=== PATIENT | female | born 1950 | race Caucasian/White ===

== ENCOUNTER → 2018-04-17 | Outpatient (CLI) | payer MEDICARE ==
--- NOTE | 2018-04-17 15:51 | BD ---
EXAMINATION TYPE: Axial Bone Density DATE OF EXAM: 04/17/2018 COMPARISON: 2016 CLINICAL HISTORY: post menopausal female. Osteoporosis screening. Height: 5'4 Weight: 172 FRAX RISK QUESTIONS: Glucocorticoids (More than 3mos): y (Ex: prednisone, prednisolone, methylprednisolone, dexamethasone, and hydrocortisone). History of Fracture in Adulthood: y Secondary Osteoporosis: RISK FACTORS HISTORY OF: Postmenopausal woman: y MEDICATIONS: Additional Medications: asthma, blood pressure Additional History: EXAM MEASUREMENTS: Bone mineral densitometry was performed using the IMedExchange System. Bone mineral density as measured about the Lumbar spine is: ----- L1-L4(G/cm2): 0.995 T Score Values are as follows: ----- L2: -1.5 ----- L3: -1.8 ----- L4: -1.3 ----- L1-L4: -1.5 Bone mineral density has: Decreased -1.5% since study of: 12/31/2015 Bone mineral density about the R hip (g/cm2): 0.726 Bone mineral density about the L hip (g/cm2): 0.659 T Score values are as follows: -----R Neck: -2.2 -----L Neck: -2.7 -----R Total: -0.8 -----L Total: -1.0 Bone mineral density has: Decreased -5.7% since study of: 12/31/2015 IMPRESSION: Osteoporosis (T Score less than -2.5) with regards to the left femur. There is increased fracture risk and therapy is usually indicated based on age. Re-Screen 1-2 years. NOTE: T-SCORE=SD OF THE YOUNG ADULT MEAN.
--- NOTE | 2018-04-18 13:29 | MM ---
Reason for exam: screening (asymptomatic). Last mammogram was performed 2 years and 4 months ago. History: Patient is postmenopausal. Took estrogen for 1 year beginning at age 52. Physical Findings: A clinical breast exam by your physician is recommended on an annual basis and results should be correlated with mammographic findings. MG 3D Screening Mammo W/Cad Bilateral CC and MLO view(s) were taken. Prior study comparison: December 31, 2015, bilateral MG 3d screening mammo w/cad. July 05, 2012, bilateral digital screening mammo w/CAD. The breast tissue is heterogeneously dense. This may lower the sensitivity of mammography. There is a stable right lower inner quadrant mass at posterior depth. No suspicious abnormality. No significant changes when compared with prior studies. ASSESSMENT: Benign, BI-RAD 2 RECOMMENDATION: Routine screening mammogram of both breasts in 1 year.
== END ==
LOC: RADMAMWWP 14:34
PROVIDERS: ATTEND Internal Medicine
DX: Z12.31 Encounter for screening mammogram for malignant neoplasm of breast (principal); M81.0 Age-related osteoporosis without current pathological fracture; Z78.0 Asymptomatic menopausal state
CPT/HCPCS: 77063; 77067; 77080

== ENCOUNTER → 2018-05-21 | Outpatient (CLI) | payer MEDICARE ==
--- NOTE | 2018-05-21 11:01 | XR ---
EXAMINATION TYPE: XR foot complete LT DATE OF EXAM: 05/21/2018 CLINICAL HISTORY: pain TECHNIQUE: Frontal, lateral and oblique images of the left foot are obtained. COMPARISON: None. FINDINGS: There is no acute fracture/dislocation evident. Moderate degenerative narrowing first meta tarsal phalangeal joint The overlying soft tissue appears unremarkable. Postoperative changes about t he os calcis. IMPRESSION: There is no acute fracture or dislocation. ICD 10 NO FRACTURE, INITIAL EVALUATION
== END | disposition home or self-care (01) ==
LOC: RADXRMAIN 10:33
PROVIDERS: ATTEND Podiatrist Foot Surgery
DX: M79.672 Pain in left foot (principal); M77.42 Metatarsalgia, left foot; M20.12 Hallux valgus (acquired), left foot

== ENCOUNTER → 2018-06-22 | Outpatient (CLI) | payer MEDICARE ==
--- NOTE | 2018-06-22 10:48 | XR ---
EXAMINATION TYPE: XR chest 2V DATE OF EXAM: 06/22/2018 COMPARISON: None TECHNIQUE: PA and lateral views submitted. HISTORY: Cough FINDINGS: Heart size normal. No pneumothorax or interstitial edema. Linear changes involving the lung bases. No overt failure. Hyperinflation seen. Hypertrophic and degenerative changes identified of the vertebra l column. IMPRESSION: 1. Basilar atelectasis favored over pneumonia correlate clinically. 2. COPD
== END | disposition home or self-care (01) ==
LOC: RADXRMAIN 10:33
PROVIDERS: ATTEND Allergy & Immunology
DX: J44.9 Chronic obstructive pulmonary disease, unspecified (principal); J98.11 Atelectasis
CPT/HCPCS: 71046

== ENCOUNTER → 2018-06-28 | Outpatient (CLI) | payer MEDICARE ==
[2018-06-29 10:15] LABS: Thyroid Stim Immun Quant 23.3 IU/L (<0.10)
== END | disposition home or self-care (01) ==
LOC: LABWHC1 13:59
PROVIDERS: ATTEND Internal Medicine Endocrinology, Diabetes & Metabolism
DX: E05.00 Thyrotoxicosis with diffuse goiter without thyrotoxic crisis or storm (principal)
CPT/HCPCS: 36415; 83519; 84439; 84443; 84445; 84481; 86376

== ENCOUNTER → 2018-07-18 | Outpatient (CLI) | payer MEDICARE | END | disposition home or self-care (01) | LOC: LABWHC1 12:17 | PROVIDERS: ATTEND Internal Medicine Critical Care Medicine | DX: R05 Cough (principal) | CPT/HCPCS: 36415; 82785; 85008 ==

== ENCOUNTER → 2018-07-20 | Outpatient (CLI) | payer MEDICARE ==
--- NOTE | 2018-07-24 11:00 | CT ---
EXAMINATION TYPE: CT sinus wo con DATE OF EXAM: 07/20/2018 COMPARISON: None HISTORY: Chronic sinusitis CT DLP: [address] of the paranasal sinuses was performed in the axial and coronal planes. Bone and soft tissue settings are submitted. The paranasal sinuses demonstrate normal aeration and development. The paranasal sinuses are free of mucosal thickening or air fluid level. The osteal meatal units are patent bilaterally. Nasal septal deviation from right to left. No bony destructive changes are seen within the field of view. IMPRESSION: Nasal septal deviation from right to left. Otherwise unremarkable study.
== END ==
LOC: RADCTMAIN 14:33
PROVIDERS: ATTEND Internal Medicine Critical Care Medicine
DX: J34.2 Deviated nasal septum (principal)
CPT/HCPCS: 70486

== ENCOUNTER 2018-07-31 09:51 | Day surgery (SDC) | payer MEDICARE ==
[2018-07-30 09:52] VITALS: BMI 28.1
[~2018-07-31 09:51] MED LIST: LACTATED RINGERS 1,000 ML IV SCH; LIDOCAINE 1% 20 ML VIAL (10MG/ML) FOR IV START INTRADERMA PRN
[2018-07-31 10:08] VITALS: RESP 16; TEMP 99.4
[2018-07-31] MEDS ORDERED: LIDOCAINE 2% (PF) 20 MG/ML 10 ML AMP INHALATION ONE (10:45)
[2018-07-31] MEDS ORDERED: LIDOCAINE 1% INJ 10MG/ML (20 ML MDV) ONE (11:08)
[2018-07-31] MEDS ORDERED: PROPOFOL 10 MG/ML 20 ML VIAL IV ONE (11:08)
[2018-07-31] MEDS ORDERED: LIDOCAINE 2% INJ 20 MG/ML INTRATRACH ONE (11:18)
--- NOTE | 2018-07-31 11:36 | PCN ---
PROCEDURE NOTE PROCEDURE: Bronchoscopy, airway examination, therapeutic lavage, BAL right middle lobe. OPERATORS: Dr. Hensley and Dr. Brewer. There was informed consent. There was universal timeout. ANESTHESIA: Anesthesia/COLLECTION SUPPORT SPECIALIST provided unconscious sedation and general anesthesia. PREOPERATIVE DIAGNOSIS: Chronic cough and bronchitis. POSTOPERATIVE DIAGNOSIS: Chronic cough and bronchitis. PROCEDURE: The patient's procedure took place in room #1. After the patient was adequately sedated and being fully monitored, the bronchoscope was inserted through the right nostril. It passed through the right nasopharynx into the oropharynx. The hypopharynx was identified and topicalized. The hypopharyngeal structures appeared relatively normal. Vocal cords, anterior commissure, true cords, arytenoids, piriform sinuses, false cords, vallecula, epiglottis all appeared relatively normal. After topicalization, the bronchoscope was pushed through the glottic opening into the trachea. The trachea appeared normal. Tracheal nanci was sharp. The right and left mainstem were topicalized. The right upper lobe and its 3 segments, the right middle lobe and its 2 segments, right lower lobe and its 5 segments, the left upper lobe proper and its 2 segments, the lingula and its 2 segments and the left lower lobe and its 4 segments all had similar findings of moderate bronchitis. There was some purulent secretions noted. There was no dominant mass or tumor. There was some hyperemia and erythema of the airways. There was not any bleeding. There was no mucosal friability. The patient tolerated the procedure well so far. Next, the bronchoscope was wedged into the right middle lobe. The BAL took place. The patient tolerated the procedure well. The bronchoscope was withdrawn. There was no immediate complication. MMODL / IJN: [id number] /
[2018-07-31 12:29] VITALS: BP 124/73; PULSE 79
[2018-07-31 17:06] LABS: Appearance,BF Cloudy; Color,BF Red; Mononuclear WBC,Body Fluid 34 %; Nucleated Cells, Body Fluid 70 /uL; Polynuclear WBC,Body Fluid 66 %; RBC, Body Fluid 23550 /uL
[2018-08-01] MEDS ORDERED: ATROPINE SULFATE 0.4 MG/ML 1 ML VIAL IM ONE (05:00)
[2018-08-01] MEDS ORDERED: LIDOCAINE 2% (PF) 20 MG/ML 5 ML VIAL INHALATION ONE (05:00)
[2018-08-01] MEDS ORDERED: ALBUTEROL NEB (CONC) 2.5 MG/0.5 ML INHALATION ONE (05:00)
[2018-08-01] MEDS ORDERED: LACTATED RINGERS 1,000 ML IV SCH (06:00)
[2018-08-01] MEDS ORDERED: LIDOCAINE VISCOUS 300 MG/15 ML CUP MUCOUS MEM ONE (06:00)
[2018-08-01] MEDS ORDERED: SODIUM CHLORIDE 0.9% 1,000 ML IV SCH (06:00)
== END 2018-07-31 12:29 | disposition home or self-care (01) ==
LOC: ORWHC2ENDO 09:51
PROVIDERS: ATTEND Internal Medicine Critical Care Medicine
DX: J40 Bronchitis, not specified as acute or chronic (principal); I10 Essential (primary) hypertension; E03.9 Hypothyroidism, unspecified; E05.00 Thyrotoxicosis with diffuse goiter without thyrotoxic crisis or storm; E78.5 Hyperlipidemia, unspecified; M19.90 Unspecified osteoarthritis, unspecified site; J45.909 Unspecified asthma, uncomplicated; Z82.49 Family history of ischemic heart disease and other diseases of the circulatory system; Z83.3 Family history of diabetes mellitus; Z79.82 Long term (current) use of aspirin; Z79.890 Hormone replacement therapy; Z79.51 Long term (current) use of inhaled steroids; Z79.899 Other long term (current) drug therapy; Z88.2 Allergy status to sulfonamides
CPT/HCPCS: 94640; 88108; 88305; 89050; 87252; 87070; 87205; 87116; 87102; 87206; 31624; J2001 ×3; J0461; J2704; 87496; 87498; 87502; 87529; 87634; 87798

== ENCOUNTER 2018-08-03 09:31 | Emergency (ER) | payer MEDICARE ==
[2018-08-03] MEDS ORDERED: IBUPROFEN 600 MG TAB PO STA (09:50)
--- NOTE | 2018-08-03 09:54 | ED ---
General Adult HPI - General Chief complaint: Fever Stated complaint: Fever Time Seen by Provider: 08/03/18 09:35 Source: patient, RN notes reviewed Mode of arrival: ambulatory Limitations: no limitations - History of Present Illness Initial comments: This is a 68-year-old female who presents emergency Department complaining of a fever and chronic cough with some hemoptysis. Patient states his been ongoing for about 6 months but the fever just started Monday after she had a bronchoscopy. Patient states the fever was 102 at home and at 5:00 this morning she took 2 Tylenol. Patient states her cough is no worse than it normally is and is still some blood streaked but clear sputum. Patient denies any shortness of breath. Patient denies any swelling to the legs or calf tenderness. Patient denies any chest pain or palpitations. Patient denies any headache patient denies numbness weakness. Denies any dysuria hematuria urinary frequency. - Related Data Home Medications Medication Instructions Recorded Confirmed Aspirin [Adult Low Dose Aspirin EC] 81 mg PO DAILY 07/30/18 08/03/18 Black Seed Oil 1,000 mg PO DAILY 07/30/18 08/03/18 Budesonide-Formot 160-4.5 Mcg 2 puff INHALATION RT-BID 07/30/18 08/03/18 [Symbicort 160-4.5 Mcg Inhaler] Hydrochlorothiazide [Hydrodiuril] 25 mg PO DAILY 07/30/18 08/03/18 L.acidoph,Paracasei, B.lactis 1 cap PO DAILY 07/30/18 08/03/18 [Probiotic] Methimazole [Tapazole] 10 mg PO DAILY 07/30/18 08/03/18 Metoprolol Succinate (ER) [Toprol 50 mg PO BID 07/30/18 08/03/18 Xl] Montelukast [Singulair] 10 mg PO HS 07/30/18 08/03/18 Qnasl [place] 1 spray EA NOSTRIL QAM 07/30/18 08/03/18 amLODIPine BESYLATE/BENAZEPRIL 1 cap PO DAILY 07/30/18 08/03/18 [amLODIPine BESYLATE/BENAZEPRIL 10-20 MG] Previous Rx's Medication Instructions Recorded Amoxicillin/Potassium Clav 1 each PO Q12HR #20 tab 08/03/18 [Augmentin 875-125 Tablet] Allergies Allergy/AdvReac Type Severity Reaction Status Date / Time Sulfa (Sulfonamide Allergy Swelling Verified 08/03/18 09:58 Antibiotics) oface and lips, red skin Review of Systems ROS Statement: Those systems with pertinent positive or pertinent negative responses have been documented in the HPI. ROS Other: All systems not noted in ROS Statement are negative. Past Medical History Past Medical History: Asthma, Hypertension, Pneumonia, Thyroid Disorder Additional Past Medical History / Comment(s): sinus drainage, past high cholesterol-no rx, graves disease, History of Any Multi-Drug Resistant Organisms: None Reported Past Surgical History: Appendectomy, Orthopedic Surgery, Tonsillectomy Additional Past Surgical History / Comment(s): surgery rt tibia fx, reconstrution left heel, D&C Past Anesthesia/Blood Transfusion Reactions: Motion Sickness Past Psychological History: No Psychological Hx Reported Smoking Status: Never smoker Past Alcohol Use History: None Reported Past Drug Use History: None Reported - Past Family History Brother(s) Family Medical History: Deep Vein Thrombosis (DVT) General Exam - General Exam Comments Initial Comments: GENERAL: Patient is well-developed and well-nourished. Patient is nontoxic and well- hydrated and is in mild distress. ENT: Neck is soft and supple. No significant lymphadenopathy is noted. Oropharynx is clear. Moist mucous membranes. Neck has full range of motion without eliciting any pain. EYES: The sclera were anicteric and conjunctiva were pink and moist. Extraocular movements were intact and pupils were equal round and reactive to light. Eyelids were unremarkable. PULMONARY: Unlabored respirations. Good breath sounds bilaterally. No audible rales rhonchi or wheezing was noted. CARDIOVASCULAR: There is a regular rate and rhythm without any murmurs gallops or rubs. ABDOMEN: Soft and nontender with normal bowel sounds. SKIN: Skin is clear with no lesions or rashes and otherwise unremarkable. NEUROLOGIC: Patient is alert and oriented x3. Cranial nerves II through XII are grossly intact. Motor and sensory are also intact. Normal speech, volume and content. Symmetrical smile. MUSCULOSKELETAL: Normal extremities with adequate strength and full range of motion. Patient has no leg swelling or calf tenderness LYMPHATICS: No significant lymphadenopathy is noted PSYCHIATRIC: Normal psychiatric evaluation. Limitations: no limitations Course Vital Signs 08/03/18 08/03/18 08/03/18 09:36 10:04 10:06 Temperature 99 F 100.5 F H Pulse Rate 101 H Respiratory 20 16 Rate Blood Pressure 146/82 O2 Sat by Pulse 96 Oximetry 08/03/18 08/03/18 10:11 10:30 Temperature Pulse Rate 88 85 Respiratory 22 26 H Rate Blood Pressure 136/75 136/75 O2 Sat by Pulse 96 93 L Oximetry Medical Decision Making - Medical Decision Making EKG shows normal sinus rhythm at 89 bpm MS interval is 138 QRSs 80 QT interval 362 QTC is 440. Patient's EKG shows no acute abnormality. Chest x-ray showed no obvious abnormality. CT showed no pulmonary embolism but did show some areas of pneumonitis. I spoke with Dr. Zuñiga about the patient and the results. He wanted the patient to be discharged home on Augmentin to be followed up with him next week. Patient states she has an appointment with him. - Lab Data Result diagrams: 08/03/18 10:52 08/03/18 10:01 Lab Results 08/03/18 08/03/18 08/03/18 Range/Units 10:01 10:01 10:01 WBC (3.8-10.6) k/uL RBC (3.80-5.40) m/uL Hgb (11.4-16.0) gm/dL Hct (34.0-46.0) % MCV (80.0-100.0) fL MCH (25.0-35.0) pg MCHC (31.0-37.0) g/dL RDW (11.5-15.5) % Plt Count (150-450) k/uL Neutrophils % % Lymphocytes % % Monocytes % % Eosinophils % % Basophils % % Neutrophils # (1.3-7.7) k/uL Lymphocytes # (1.0-4.8) k/uL Monocytes # (0-1.0) k/uL Eosinophils # (0-0.7) k/uL Basophils # (0-0.2) k/uL PT 9.8 (9.0-12.0) sec INR 0.9 (<1.2) APTT 20.0 L (22.0-30.0) sec D-Dimer 0.78 H (<0.60) mg/L FEU Sodium 137 (137-145) mmol/L Potassium 4.0 (3.5-5.1) mmol/L Chloride 104 (98-107) mmol/L Carbon Dioxide 23 (22-30) mmol/L Anion Gap 10 mmol/L BUN 10 (7-17) mg/dL Creatinine 0.62 (0.52-1.04) mg/dL Est GFR (CKD-EPI)AfAm >90 (>60 ml/min/1.73 sqM) Est GFR (CKD-EPI)NonAf >90 (>60 ml/min/1.73 sqM) Glucose 112 H (74-99) mg/dL Plasma Lactic Acid Tulio (0.7-2.0) mmol/L Calcium 10.3 H (8.4-10.2) mg/dL Total Bilirubin 0.6 (0.2-1.3) mg/dL AST 24 (14-36) U/L ALT 30 (9-52) U/L Alkaline Phosphatase 76 (38-126) U/L Total Protein 8.0 (6.3-8.2) g/dL Albumin 4.3 (3.5-5.0) g/dL Urine Color Urine Appearance (Clear) Urine pH (5.0-8.0) Ur Specific [place] (1.001-1.035) Urine Protein (Negative) Urine Glucose (UA) (Negative) Urine Ketones (Negative) Urine Blood (Negative) Urine Nitrite (Negative) Urine Bilirubin (Negative) Urine Urobilinogen (<2.0) mg/dL Ur Leukocyte Esterase (Negative) Influenza Type A RNA Not Detected (Not Detectd) Influenza Type B (PCR) Not Detected (Not Detectd) 08/03/18 08/03/18 08/03/18 Range/Units 10:01 10:01 10:52 WBC 3.7 L (3.8-10.6) k/uL RBC 4.55 (3.80-5.40) m/uL Hgb 13.0 (11.4-16.0) gm/dL Hct 36.6 (34.0-46.0) % MCV 80.3 (80.0-100.0) fL MCH 28.6 (25.0-35.0) pg MCHC 35.6 (31.0-37.0) g/dL RDW 14.2 (11.5-15.5) % Plt Count 245 (150-450) k/uL Neutrophils % 77 % Lymphocytes % 13 % Monocytes % 4 % Eosinophils % 3 % Basophils % 0 % Neutrophils # 2.9 (1.3-7.7) k/uL Lymphocytes # 0.5 L (1.0-4.8) k/uL Monocytes # 0.2 (0-1.0) k/uL Eosinophils # 0.1 (0-0.7) k/uL Basophils # 0.0 (0-0.2) k/uL PT (9.0-12.0) sec INR (<1.2) APTT (22.0-30.0) sec D-Dimer (<0.60) mg/L FEU Sodium (137-145) mmol/L Potassium (3.5-5.1) mmol/L Chloride (98-107) mmol/L Carbon Dioxide (22-30) mmol/L Anion Gap mmol/L BUN (7-17) mg/dL Creatinine (0.52-1.04) mg/dL Est GFR (CKD-EPI)AfAm (>60 ml/min/1.73 sqM) Est GFR (CKD-EPI)NonAf (>60 ml/min/1.73 sqM) Glucose (74-99) mg/dL Plasma Lactic Acid Tulio 1.1 (0.7-2.0) mmol/L Calcium (8.4-10.2) mg/dL Total Bilirubin (0.2-1.3) mg/dL AST (14-36) U/L ALT (9-52) U/L Alkaline Phosphatase (38-126) U/L Total Protein (6.3-8.2) g/dL Albumin (3.5-5.0) g/dL Urine Color Light Yellow Urine Appearance Clear (Clear) Urine pH 7.0 (5.0-8.0) Ur Specific [place] 1.006 (1.001-1.035) Urine Protein Negative (Negative) Urine Glucose (UA) Negative (Negative) Urine Ketones Negative (Negative) Urine Blood Negative (Negative) Urine Nitrite Negative (Negative) Urine Bilirubin Negative (Negative) Urine Urobilinogen <2.0 (<2.0) mg/dL Ur Leukocyte Esterase Negative (Negative) Influenza Type A RNA (Not Detectd) Influenza Type B (PCR) (Not Detectd) Disposition Clinical Impression: Status post bronchoscopy, Pneumonitis Disposition: HOME SELF-CARE Condition: Good Instructions (If sedation given, give patient instructions): Pneumonitis (ED), Fever in Adults (ED) Prescriptions: Amoxicillin/Potassium Clav [Augmentin 875-125 Tablet] 1 each PO Q12HR #20 tab Is patient prescribed a controlled substance at d/c from ED?: No Referrals: Doroteo Fuller MD [Primary Care Provider] - 1-2 days
[2018-08-03 10:30] LABS: ALT 30 U/L (9-52); AST 24 U/L (14-36); Albumin 4.3 g/dL (3.5-5.0); Alkaline Phosphatase 76 U/L (38-126); Anion Gap 10 mmol/L; Blood Urea Nitrogen 10 mg/dL (7-17); Calcium 10.3 mg/dL (8.4-10.2); Carbon Dioxide 23 mmol/L (22-30); Chloride 104 mmol/L (98-107); Glucose 112 mg/dL (74-99); Sodium 137 mmol/L (137-145); Total Bilirubin 0.6 mg/dL (0.2-1.3)
[2018-08-03 10:37] LABS: Appearance,Urine Clear (Clear); Bilirubin,Urine Negative (Negative); Blood,Urine Negative (Negative); Color,Urine Light Yellow; Glucose,Urine (UA) Negative (Negative); Ketones,Urine Negative (Negative); Leukocyte Esterase,Urine Negative (Negative); Nitrite,Urine Negative (Negative); Protein,Urine Negative (Negative); Specific Gravity,Urine 1.006 (1.001-1.035); Urobilinogen,Urine <2.0 mg/dL (<2.0)
[2018-08-03 10:44] LABS: INR 0.9 (<1.2); Prothrombin Time 9.8 sec (9.0-12.0)
[2018-08-03 10:49] LABS: D-Dimer 0.78 mg/L FEU (<0.60)
--- NOTE | 2018-08-03 10:55 | XR ---
EXAMINATION TYPE: XR chest 2V DATE OF EXAM: 08/03/2018 COMPARISON: Prior chest x-ray 06/22/2018 HISTORY: Fever, hemoptysis TECHNIQUE: Frontal and lateral views of the chest are obtained. FINDINGS: There is no significant interval change. Minimal strand-like density at the left lung base likely represents atelectasis or scarring. There are prominent lung volumes which may be indicative o f underlying COPD. There are overlying cardiac leads. There is no focal air space opacity, pleural ef fusion, or pneumothorax seen. The cardiac silhouette size is within normal limits. The osseous str uctures are intact. IMPRESSION: No acute cardiopulmonary process.
[2018-08-03 11:03] LABS: Basophils % (A) 0 %; Eosinophils # (A) 0.1 k/uL (0-0.7); Eosinophils % (A) 3 %; HCT 36.6 % (34.0-46.0); Lymphocytes # (A) 0.5 k/uL (1.0-4.8); Lymphocytes % (A) 13 %; MCH 28.6 pg (25.0-35.0); MCHC 35.6 g/dL (31.0-37.0); MCV 80.3 fL (80.0-100.0); Mean Platelet Volume 8.2; Monocytes # (A) 0.2 k/uL (0-1.0); Monocytes % (A) 4 %; Neutrophils # (A) 2.9 k/uL (1.3-7.7); Neutrophils % (A) 77 %; Platelet Count 245 k/uL (150-450); RBC 4.55 m/uL (3.80-5.40); RDW 14.2 % (11.5-15.5); WBC 3.7 k/uL (3.8-10.6)
--- NOTE | 2018-08-03 12:12 | CT ---
CT CHEST FOR PULMONARY EMBOLISM. EXAMINATION TYPE: CT chest angio for PE DATE OF EXAM: 08/03/2018 INDICATION: Post Bronchoscopy on 07/31/18. Hemoptysis and fever CT DLP: 291.8 mGycm, Automated exposure control for dose reduction was used. CONTRAST: Patient injected with 100 mL of Isovue 370. COMPARISON: None TECHNIQUE: CT of the chest is performed on a spiral scan at 2 mm thick sections. Study is performed with intravenous contrast timed for evaluation for pulmonary embolism. This will limit additional po rtions of the evaluation. 3-D MIP images reconstructed by the technologist are reviewed on the compu ter in the coronal and sagittal planes. FINDINGS: Thyroid is slightly prominent. No discrete masses are evident within the [id number]. No persistent filling defects are evident to suggest an acute pulmonary embolism. No mediastinal or hilar adenopathy enlarged by CT criteria is evident. The ascending aorta diameter at the level of the main pulmonary artery is 3.3 cm. The main pulmonary artery diameter at the bifur cation is 3.1 cm. There is a 0.9 cm area of pneumonitis within the posterior right upper lung field. Series 406 image 2 9. Some additional pneumonitis changes adjacent to the major fissure on the left, series 406 image 60 as well as on the right, image 406 image 63. There is a groundglass opacity within the right middle lobe. Series 406 image 96. Some mild atelectasis may be just above the right diaphragm. Some mild pleural thickening may be in the posterior right lung. Series 406 image 84.r There is a 0.6 cm nodule within the right middle lobe. Series [address] sections are obtained through the upper abdomen. There are several small hypodensities wit hin the liver may be hepatic cysts. IMPRESSIONS: 1. No acute pulmonary embolism. 2. Several areas of pneumonitis change which are nonspecific. Infectious etiology could be considered . This should be followed. 3. There is a nodule within the right middle lobe. Follow-up chest CT in 3 months is recommended to c onfirm stability.
[2018-08-03] MEDS ORDERED: AMOXIC-POT CLAV 875-125MG 1 EACH TAB PO STA (12:54)
[2018-08-03 13:08] VITALS: BP 133/67; PULSE 76; RESP 16; TEMP 98.6
== END 2018-08-03 13:09 | disposition home or self-care (01) ==
LOC: EC 09:31
DX: J18.9 Pneumonia, unspecified organism (principal); J45.909 Unspecified asthma, uncomplicated; I10 Essential (primary) hypertension; Z79.51 Long term (current) use of inhaled steroids; Z79.82 Long term (current) use of aspirin; Z79.899 Other long term (current) drug therapy; Z88.2 Allergy status to sulfonamides
CPT/HCPCS: 36415; 93005; 85379; 80053; 83605; 85025; 85610; 85730; 81003; 87040; 87086; 87502; 71046; 71275; 99284; Q9967

== ENCOUNTER 2018-08-04 17:58 | Inpatient (IN) | payer MEDICARE ==
[2018-08-04] MEDS ORDERED: SODIUM CHLORIDE 0.9% 1,000 ML IV STA (18:31)
[2018-08-04] MEDS ORDERED: ACETAMINOPHEN TAB 500 MG TAB PO STA (18:31)
[2018-08-04] MEDS ORDERED: ONDANSETRON 4 MG/2 ML VIAL IVP STA (18:33)
--- NOTE | 2018-08-04 18:53 | ED ---
Fever HPI <Byron Chen - Last Filed: 08/04/18 20:30> - General Source: patient Mode of arrival: ambulatory Limitations: no limitations <Felicita Ash - Last Filed: 08/04/18 22:36> - General Chief Complaint: Fever Stated Complaint: Fever Time Seen by Provider: 08/04/18 18:14 - History of Present Illness Initial Comments: 68-year-old female patient presents to the emergency department today for ev aluation of fever. Patient states that she had a bronchoscopy performed on 07/31/2018 for a six-month history of chronic cough. Patient states shortly after the procedure she developed fever and vomiting. Patient states symptoms have persisted over the last 3-4 days. States that she was seen and evaluated here yesterday, diagnosed with post bronchoscopy pneumonitis and started on Augmentin. Patient states she did take 2 doses of the medication today and did have vomiting episodes approximately 3 hours after each dose. States that she has continued to spike fevers and had T-max at home today 104.0F. Patient states that she is experiencing generalized weakness and achiness. Patient de nies any current shortness of breath or chest pain. Denies any rash, constipation, diarrhea, or abdominal pain. Patient did take 600 mg of ibuprofen around 2 PM for fever. Patient denies any recent shortness breath, back pain, numbness, tingling, dizziness, weakness, hematuria, dysuria, urinary urgency, urinary frequency, headache, visual changes, or any other complaints. (Felicita Ash) - Related Data Home Medications Medication Instructions Recorded Confirmed Aspirin [Adult Low Dose Aspirin EC] 81 mg PO DAILY 07/30/18 08/04/18 Black Seed Oil 1,000 mg PO DAILY 07/30/18 08/04/18 Budesonide-Formot 160-4.5 Mcg 2 puff INHALATION RT-BID 07/30/18 08/04/18 [Symbicort 160-4.5 Mcg Inhaler] Hydrochlorothiazide [Hydrodiuril] 25 mg PO DAILY 07/30/18 08/04/18 L.acidoph,Paracasei, B.lactis 1 cap PO DAILY 07/30/18 08/04/18 [Probiotic] Methimazole [Tapazole] 10 mg PO DAILY 07/30/18 08/04/18 Metoprolol Succinate (ER) [Toprol 50 mg PO BID 07/30/18 08/04/18 Xl] Montelukast [Singulair] 10 mg PO HS 07/30/18 08/04/18 Qnasl [place] 1 spray EA NOSTRIL QAM 07/30/18 08/04/18 amLODIPine BESYLATE/BENAZEPRIL 1 cap PO DAILY 07/30/18 08/04/18 [amLODIPine BESYLATE/BENAZEPRIL 10-20 MG] Amoxicillin/Potassium Clav 1 tab PO Q12HR 08/04/18 08/04/18 [Augmentin 875-125 Tablet] Allergies Allergy/AdvReac Type Severity Reaction Status Date / Time Sulfa (Sulfonamide Allergy Swelling Verified 08/04/18 20:58 Antibiotics) oface and lips, red skin Review of Systems ROS Other: All systems not noted in ROS Statement are negative. <Byron Chen - Last Filed: 08/04/18 20:30> ROS Other: All systems not noted in ROS Statement are negative. <Felicita Ash - Last Filed: 08/04/18 22:36> ROS Statement: Those systems with pertinent positive or pertinent negative responses have been documented in the HPI. Past Medical History Past Medical History: Asthma, Hypertension, Pneumonia, Thyroid Disorder Additional Past Medical History / Comment(s): sinus drainage, past high cho lesterol-no rx, graves disease, History of Any Multi-Drug Resistant Organisms: None Reported Past Surgical History: Appendectomy, Orthopedic Surgery, Tonsillectomy Additional Past Surgical History / Comment(s): surgery rt tibia fx, reconstrution left heel, D&C Past Anesthesia/Blood Transfusion Reactions: Motion Sickness Past Psychological History: No Psychological Hx Reported Smoking Status: Never smoker Past Alcohol Use History: None Reported Past Drug Use History: None Reported - Past Family History Brother(s) Family Medical History: Deep Vein Thrombosis (DVT) <Felicita Ash - Last Filed: 08/04/18 22:36> General Exam Limitations: no limitations General appearance: alert, in no apparent distress, other (Physical well- developed, well-nourished adult female patient in no acute distress. Vital signs upon presentation are temperature 102.9F, pulse 107, respirations 18, blood pressure 129/76, pulse ox 98% on room air.) Eye exam: Present: normal appearance, PERRL, EOMI. Absent: scleral icterus, conjunctival injection, periorbital swelling ENT exam: Present: normal exam, normal oropharynx, mucous membranes moist Respiratory exam: Present: normal lung sounds bilaterally. Absent: respiratory distress, wheezes, rales, rhonchi, stridor Cardiovascular Exam: Present: regular rate, normal rhythm, normal heart sounds. Absent: systolic murmur, diastolic murmur, rubs, gallop, clicks GI/Abdominal exam: Present: soft, normal bowel sounds. Absent: distended, tenderness, guarding, rebound, rigid Neurological exam: Present: alert, oriented X3, CN II-XII intact Psychiatric exam: Present: normal affect, normal mood Skin exam: Present: warm, dry, intact, normal color. Absent: rash <Felicita Ash - Last Filed: 08/04/18 22:36> Course Vital Signs 08/04/18 08/04/18 18:02 21:09 Temperature 102.9 F H Pulse Rate 107 H 78 Respiratory 18 20 Rate Blood Pressure 129/76 95/81 O2 Sat by Pulse 98 97 Oximetry Medical Decision Making - Lab Data Result diagrams: 08/04/18 19:10 08/04/18 19:10 <Byron Chen - Last Filed: 08/04/18 20:30> - Lab Data Result diagrams: 08/04/18 19:10 08/04/18 19:10 <Felicita Ash - Last Filed: 08/04/18 22:36> - Medical Decision Making Medical decision making. This is a 68-year-old female who returns to the emergency room today with a fever of 102. Labs show white count of 4. Patient is declining a repeat chest x-ray. She was started on IV antibiotics. The case discussed with Dr. Zafar on-call for Dr. Fuller. He'll see the patient in the emergency room. Dr. Chen (Byron Chen) 60-year-old female patient who is status post bronchoscopy and 07/31/2018 presents to the emergency department today for evaluation of elevated temperature. T-max at home was 104.0F. Patient was evaluated yesterday and discharged home started on Augmentin. Patient had multiple episodes of vomiting today and presents complaining of feeling worse. She denies any significant cough or hemoptysis. Did order labs which were relatively unremarkable, white blood cell count was within normal range over increased from yesterday's level. Physical examination is relatively unremarkable. Did order chest x-ray were patient declined stating that she's had multiple x-rays in the last few days including a CAT scan. Did discuss risks of not performing x-ray, she verbalizes understanding for continued to decline. We will start IV antibiotics. We will admit to Dr. Rowe and have Dr. Hensley on consult. (Felicita Ash) - Lab Data Lab Results 08/04/18 08/04/18 08/04/18 Range/Units 19:10 19:10 19:10 WBC 4.4 (3.8-10.6) k/uL RBC 4.60 (3.80-5.40) m/uL Hgb 13.6 (11.4-16.0) gm/dL Hct 37.0 (34.0-46.0) % MCV 80.4 (80.0-100.0) fL MCH 29.5 (25.0-35.0) pg MCHC 36.7 (31.0-37.0) g/dL RDW 13.8 (11.5-15.5) % Plt Count 215 (150-450) k/uL Neutrophils % 87 % Lymphocytes % 6 % Monocytes % 4 % Eosinophils % 1 % Basophils % 0 % Neutrophils # 3.8 (1.3-7.7) k/uL Lymphocytes # 0.3 L (1.0-4.8) k/uL Monocytes # 0.2 (0-1.0) k/uL Eosinophils # 0.1 (0-0.7) k/uL Basophils # 0.0 (0-0.2) k/uL Hyperchromasia Slight Sodium 137 (137-145) mmol/L Potassium 3.5 (3.5-5.1) mmol/L Chloride 102 (98-107) mmol/L Carbon Dioxide 23 (22-30) mmol/L Anion Gap 12 mmol/L BUN 18 H (7-17) mg/dL Creatinine 0.79 (0.52-1.04) mg/dL Est GFR (CKD-EPI)AfAm 90 (>60 ml/min/1.73 sqM) Est GFR (CKD-EPI)NonAf 78 (>60 ml/min/1.73 sqM) Glucose 113 H (74-99) mg/dL Plasma Lactic Acid Tulio 1.2 (0.7-2.0) mmol/L Calcium 10.1 (8.4-10.2) mg/dL Total Bilirubin 0.6 (0.2-1.3) mg/dL AST 30 (14-36) U/L ALT 32 (9-52) U/L Alkaline Phosphatase 82 (38-126) U/L Total Protein 7.2 (6.3-8.2) g/dL Albumin 3.8 (3.5-5.0) g/dL Disposition <Byron Chen - Last Filed: 08/04/18 20:30> Decision to Admit Reason: Admit from EC Decision Date: 08/04/18 Decision Time: 20:51 <Felicita Ash - Last Filed: 08/04/18 22:36> Clinical Impression: Pneumonitis, Fever Disposition: ADMITTED IP TO THIS [facility] Condition: Serious Referrals: Doroteo Fuller MD [Primary Care Provider] - 1-2 days
[2018-08-04 19:53] LABS: Basophils % (A) 0 %; Eosinophils # (A) 0.1 k/uL (0-0.7); Eosinophils % (A) 1 %; HGB 13.6 gm/dL (11.4-16.0); Hyperchromasia Slight; Lymphocytes # (A) 0.3 k/uL (1.0-4.8); Lymphocytes % (A) 6 %; MCH 29.5 pg (25.0-35.0); MCHC 36.7 g/dL (31.0-37.0); MCV 80.4 fL (80.0-100.0); Mean Platelet Volume 6.6; Monocytes # (A) 0.2 k/uL (0-1.0); Monocytes % (A) 4 %; Neutrophils # (A) 3.8 k/uL (1.3-7.7); Neutrophils % (A) 87 %; Platelet Count 215 k/uL (150-450); RDW 13.8 % (11.5-15.5); WBC 4.4 k/uL (3.8-10.6)
[2018-08-04 19:56] LABS: Albumin 3.8 g/dL (3.5-5.0); Calcium 10.1 mg/dL (8.4-10.2); Potassium 3.5 mmol/L (3.5-5.1); Total Bilirubin 0.6 mg/dL (0.2-1.3); Total Protein 7.2 g/dL (6.3-8.2)
[2018-08-04] MEDS ORDERED: NALOXONE 0.4 MG/ML 1 ML VIAL IV PRN (20:47)
[2018-08-04] MEDS ORDERED: AZITHROMYCIN 500 MG in SODIUM CHLORIDE 0.9% 250 ML IVPB STA (20:50)
[2018-08-04] MEDS ORDERED: AZITHROMYCIN 500 MG in SODIUM CHLORIDE 0.9% 250 ML IVPB ONE (22:30)
[2018-08-04] MEDS: SODIUM CHLORIDE 0.9% 1,000 ML IV SCH (22:35)
[2018-08-05] MEDS ORDERED: MONTELUKAST 10 MG TAB PO STA (01:15)
[2018-08-05] MEDS ORDERED: SYMBICORT 160-4.5 MCG INHALER INHALATION STA ×2 (01:43→01:51)
[2018-08-05 02:36] LABS: Appearance,Urine Clear (Clear); Bilirubin,Urine Negative (Negative); Blood,Urine Negative (Negative); Color,Urine Yellow; Glucose,Urine (UA) Negative (Negative); Ketones,Urine Negative (Negative); Leukocyte Esterase,Urine Negative (Negative); Nitrite,Urine Negative (Negative); Protein,Urine Trace (Negative); Specific Gravity,Urine 1.016 (1.001-1.035); Urobilinogen,Urine <2.0 mg/dL (<2.0)
[2018-08-05] MEDS ORDERED: ONDANSETRON 4 MG/2 ML VIAL IVP STA (04:04)
[2018-08-05] MEDS: ACETAMINOPHEN TAB 325 MG TAB PO PRN ×3 (04:12→23:15)
[2018-08-05] MEDS: SYMBICORT 160-4.5 MCG INHALER INHALATION SCH ×2 (07:50→19:39)
[2018-08-05] MEDS ORDERED: METHIMAZOLE 5 MG TAB PO SCH (09:00)
[2018-08-05] MEDS ORDERED: AZITHROMYCIN 500 MG in SODIUM CHLORIDE 0.9% 250 ML IVPB SCH (09:00)
[2018-08-05] MEDS ORDERED: amLODIPine 10 MG TAB PO SCH (09:00)
[2018-08-05] MEDS ORDERED: QNASL EA NOSTRIL SCH (09:00)
[2018-08-05] MEDS ORDERED: BLACK SEED OIL PO SCH (09:00)
[2018-08-05] MEDS: ASPIRIN 81 MG PO SCH (09:52)
[2018-08-05] MEDS: METOPROLOL SUCCINATE (ER) 50 MG TAB.ER.24H PO SCH ×2 (09:53→21:26)
[2018-08-05] MEDS: LISINOPRIL 20 MG TAB PO SCH ×3 (09:53→10:43)
[2018-08-05] MEDS: IBUPROFEN 400 MG TAB PO PRN ×2 (09:59→19:44)
[2018-08-05] MEDS: LIPASE 5,000/PROTEASE 17,000/AMYLASE 24,000 PO SCH (10:43)
[2018-08-05] MEDS: amLODIPine 10 MG TAB PO SCH (10:43)
[2018-08-05 10:59] LABS: HCT 36.4 % (34.0-46.0); HGB 12.9 gm/dL (11.4-16.0); Hyperchromasia Slight; MCH 28.7 pg (25.0-35.0); MCHC 35.4 g/dL (31.0-37.0); MCV 81.2 fL (80.0-100.0); Mean Platelet Volume 8.5; Platelet Count 206 k/uL (150-450); RBC 4.48 m/uL (3.80-5.40); RDW 13.9 % (11.5-15.5); WBC 2.8 k/uL (3.8-10.6)
--- NOTE | 2018-08-05 13:20 | HP ---
HISTORY AND PHYSICAL ATTENDING PHYSICIAN: Dr. Mark Fuller. CHIEF COMPLAINT: Fever. HISTORY OF PRESENT ILLNESS: This 68-year-old female was admitted to the hospital after presenting in the emergency room on return visit because of continued episodes of fever. The patient had a temperature of 104 at home and in view of this, she presents to the hospital. The patient had been seen in the emergency room on with a fever and workup had been negative and thus, the patient had been discharged back home. The patient last week Monday, had a bronchoscopy because of continued coughing. The patient cultures from that were negative. The patient's CT scan done on suggests a possible small episodes of pneumonitis. The patient was seen by Pulmonary, Dr. Cain who did not feel there was any significant changes. The patient's chest x-ray was unremarkable. White count was actually on the low side. Patient is on Tapazole. The patient was recently started on Tapazole for Graves thyroid. That has been about 3 weeks. The patient denies any other symptoms of headaches, any worsening cough. In fact, the cough is much better. Denies any diarrhea, dysuria. No skin lesions. She does have some mild vomiting, couple of episodes at least with minimal vomitus. Appetite is down. Patient does get chills. She gets a fever. There is no other clear focus of fever. Denies any sore throat. PAST MEDICAL HISTORY: Recent diagnosis of hypothyroidism. The patient has a goiter as well, and was felt to have Grave's thyrotoxicosis. She has mild exophthalmos. Past history significant for long-standing history of hypertension and bronchial asthma, mild persistent. The patient on medical therapy for the same with help. Has had a previous also history of degenerative arthritis. Past trauma history includes right tibial and left tibial fractures. She has had hardware in both the right tibia and left tibia. No increased pain at those sites. This was many years ago. PAST SURGICAL HISTORY: Includes tonsils, tonsillectomy, appendectomy. She has had colonoscopies with no significant abnormality, last one back in January 2014. PERSONAL HISTORY: Nonsmoker. Alcohol a couple drinks a week, which she has not been drinking any lately. Vaccinations does get annual flu shot. ALLERGIES: TO SULFA. MEDICATIONS: Include Lotrel 10-20 1 daily, singular 10 mg daily, metoprolol 50 mg b.i.d., Tapazole 10 mg daily. She takes probiotic daily, HydroDIURIL 25 mg daily, Symbicort 2 puffs b.i.d., takes some 1000 mg daily, aspirin 81 mg daily, and had been placed on Augmentin in the emergency room 2 days ago. SOCIAL HISTORY: Patient , lives with her spouse. She is a retired speech therapist. Does exercise regularly until recent. FAMILY MEDICAL HISTORY: Father at the age of 55, acute myocardial infarction. Mother age 92. She had history of diabetes mellitus, ASHD. Five brothers, 1 brother had history of abdominal aortic aneurysm and diabetes mellitus. Other brothers have history of hypertension. There is a strong history of age-related macular degeneration. Sister 71 history of hepatitis in remission. The patient's son, 41 history of psoriasis, daughter 37 in good health. REVIEW OF SYSTEMS: Neuro: Denies any headaches, dizziness. No double vision, blurred vision. No symptoms of TIA, syncope, seizures. Psych: Some anxiety. Cardiac: Denies chest pain, angina, palpitations. RESPIRATORY: Denies shortness of breath, improved cough. No hemoptysis. GI mild nausea, vomiting. No abdominal pain. No diarrhea. No constipation, hematochezia, melena. No : No symptoms of dysuria, hematuria, urgency frequency. Extremities: Denies pain or edema. CONSTITUTIONAL: No fever or chills. Did lose weight. She was losing a pound a day while she was hypothyroid. This is improved since has been on Tapazole. PHYSICAL EXAMINATION: Pleasant female in no distress. Vital signs revealed she had a temperature of 103 degrees Fahrenheit last night. This morning 100.9, pulse 85, respiration 18, blood pressure 125/76, pulse ox 98% on room air. HEENT: Normocephalic. NECK: Supple. No JVD. Oral cavity is mild inflammation. No exudates. Nostrils are clear. NECK: Supple. Mild thyromegaly. Nontender. Chest examination: Clear to auscultation and percussion. Cardiac: Normal S1, S2 with no gallops, murmurs appreciated. ABDOMEN: Soft. No palpable masses. Bowel sounds normal. No organomegaly. No abdominal bruits. No CVA tenderness. EXTREMITIES: No edema. No tenderness at the site of previous surgeries. Neurologically: Awake, alert, oriented x3 with well-coordinated movements. Eye examination reveals mild lid lag. LABORATORY DATA: Laboratory assessment yesterday reveals white count was 4.4, lymphocytes down to 0.3, neutrophils 3.8. Electrolytes were normal. Random glucose 113. Lactic acid normal. Hepatic function normal. Urine analysis is unremarkable. ASSESSMENT: 1. Fever, source undetermined. 2. Recent bronchoscopy. 3. History of bronchial asthma, moderate intermittent. 4. Graves disease, recent diagnosis. 5. Neutropenia, probably related to Tapazole. 6. Leukopenia probably related to Tapazole. PLAN: Continue present medical regimen. We will hold Tapazole. I will discuss this with Dr. Yadi Crawford who is our marketing financial analyst on outpatient. Patient has been seen by Pulmonary, Dr. Hensley and again, no clear source of infection is noted. I will check sedimentation rate and CRP. Prognosis remains guarded. Condition discussed with the patient and spouse. MMODL / ANNETTEN: [id number] /
--- NOTE | 2018-08-05 13:33 | CONS ---
CONSULTATION PULMONARY CRITICAL CARE CONSULTATION: DATE OF CONSULTATION: 08/05/2018 This is a patient who was sent to me by Dr. Stroud. I evaluated her in the office. She has a history of chronic bronchial asthma which has been much more active recently. Her complaints include increasing cough, wheezing, chest tightness, shortness of breath, and secretion production. Anyway, the patient had a bronchoscopy performed by me on July 31. We did a BAL of the right middle lobe. Thus far all cultures are negative. It was an uneventful bronchoscopy. No biopsies were done. We did it primarily to remove any secretions that were in the airway, but also to collect some secretions for sampling. The BAL went to the laboratory and is currently negative or pending. Subsequent to that, she developed a febrile episode. It seemed to develop about 4-6 hours after the procedure. She apparently presented to the emergency room afterwards and was seen by Dr. Quezada and she was prescribed some Augmentin. Dr. Quezada actually called me. She was very stable and her testing was essentially unremarkable. Subsequent to that visit, she came back into the emergency room on August 04. The patient was seen by Dr. Byron Chen at that time. The patient apparently refused a chest x-ray, but did have a CAT scan and the CAT scan showed some very minimal patchy areas of pneumonitis. The patient did have a high temperature of about 103-104 degrees. For that reason, she was admitted to the hospital for IV fluids, antibiotics, and temperature control. I did see her in the emergency room. She seemed relatively comfortable say for the fever. She denies any shortness of breath, coughing, wheezing, or phlegm production. No chest pain or chest discomfort. The patient was also seen by Dr. Fuller who was covering for Dr. Stroud. Again, her radiographic studies were minimal at best. She denies all other complaints. CURRENT MEDICATIONS: Include aspirin, flaxseed oil, Symbicort, hydrochlorothiazide, probiotic, Tapazole for recently discovered Graves disease, metoprolol, montelukast, QNASL spray, amlodipine, and Augmentin which was given to her on her first hospital visit by Dr. Quezada. ALLERGIES: SULFA. MEDICAL HISTORY: Includes chronic bronchial asthma which has been more active recently, hypertension, previous episode of pneumonia and hyperthyroidism. She also has chronic sinus disease. In the past she has had high cholesterol. SURGICAL HISTORY: Includes appendectomy, tonsillectomy, right tibial surgery reconstruction of left heel, D and C. SOCIAL HISTORY: Negative for tobacco, alcohol or illicit drug use. FAMILY HISTORY: Positive for DVT. OCCUPATIONAL HISTORY: Noncontributory. REVIEW OF SYSTEMS: CONSTITUTIONAL: Fever. NEUROLOGIC: Negative. HEENT: Negative. CARDIOVASCULAR: Negative. PULMONARY: Negative. GI: Negative. : Negative. RHEUMATOLOGIC: Negative. IMMUNOLOGIC: Negative. ENDOCRINOLOGIC: Negative. PHYSICAL EXAMINATION: Current vital signs: Temperature 100.9, heart rate 85, respiratory rate 18, blood pressure 125/76, mean 92, room air saturation 98%. Her T-max was 103 degrees. She appears in no acute distress. Again, she is not really having any major issues other than the fever. HEENT examination is grossly unremarkable. Mucous membranes are moist. NECK: Supple. Full range of motion. No adenopathy, thyromegaly or neck vein distention. CARDIOVASCULAR EXAMINATION: Reveals regular rhythm rate. Heart rate about mid 80s. S1, S2 normal. LUNGS: Mostly clear. No wheezes, rhonchi, or crackles. Breath sounds equal bilaterally. No wheezes. ABDOMEN: Soft. Bowel sounds are heard. Extremities are intact. No cyanosis, clubbing, or edema. Skin without rash. Neurologic examination is brief but nonfocal. White count 2.8, hemoglobin 12.9, hematocrit 36.4, platelet count 306,000. Sodium, potassium, chloride and CO2 all normal. Anion gap normal. BUN and creatinine were normal. Urine was negative. Liver function tests were normal. She had a chest x-ray when she was in the ER on the . It showed it to be normal. She had a CT scan also on the and it showed no evidence of pulmonary embolism. It showed some patchy areas of minimal pneumonitis. These areas included the posterior right upper lung and also on the left side as well. There was also some minimal abnormality in the right middle lobe. All of her microbiology is thus far negative. There was some Nola in her fungal cultures. Virus studies were all negative. Bacteriologic studies were negative. Her medications are reviewed. She was given Tylenol, Zithromax, Symbicort, and Rocephin. She was also started on some Singulair. ASSESSMENT: 1. Febrile illness following a bronchoscopy, of unclear etiology. So far sampling from the bronch wash is negative. She is not having any other symptoms including shortness of breath, chest tightness, wheezing, cough or phlegm production. 2. History of chronic bronchial asthma, much more active recently. 3. History of chronic sinus disease and sinus drainage. 4. History of hypertension. 5. History of pneumonia. 6. Recently diagnosed hyperthyroidism/Graves disease. PLAN: The patient will be admitted to the hospital for some fluids, antipyretics and antibiotics. We will continue to follow. Prognosis is good. The patient looks well clinically. She is not having any other complaints other than fever. Additional recommendations and suggestions are forthcoming. She was being seen by Dr. Fuller when we were seeing her in the emergency room. MMODL / IJN: [id number] /
[2018-08-05 14:55] LABS: Band Neutrophils % 2 %; Eosinophils # (M) 0.03 k/uL (0-0.7); Lymphocytes # (M) 0.64 k/uL (1.0-4.8); Monocytes # (M) 0.48 k/uL (0-1.0); Neutrophils % (M) 57 %; Nucleated Red Blood Cells 0 /100 WBC (0-0); Total Cells Counted 100
[2018-08-05] MEDS: ONDANSETRON 4 MG/2 ML VIAL IVP PRN ×2 (17:28→23:15)
[2018-08-05] MEDS: SODIUM CHLORIDE 0.9% 1,000 ML IV SCH (18:15)
[2018-08-05] MEDS: MONTELUKAST 10 MG TAB PO SCH (21:26)
[2018-08-06] MEDS: IBUPROFEN 400 MG TAB PO PRN (03:10)
[2018-08-06] MEDS: SODIUM CHLORIDE 0.9% 1,000 ML IV SCH (03:10)
[2018-08-06] MEDS: ASPIRIN 81 MG PO SCH (07:21)
[2018-08-06] MEDS: METOPROLOL SUCCINATE (ER) 50 MG TAB.ER.24H PO SCH ×2 (07:21→22:17)
[2018-08-06] MEDS: LIPASE 5,000/PROTEASE 17,000/AMYLASE 24,000 PO SCH (07:22)
[2018-08-06] MEDS: amLODIPine 10 MG TAB PO SCH (07:23)
[2018-08-06] MEDS: LISINOPRIL 20 MG TAB PO SCH (07:23)
[2018-08-06 08:12] LABS: T4, Free (Free Thyroxine) 1.08 ng/dL (0.78-2.19)
[2018-08-06] MEDS: SYMBICORT 160-4.5 MCG INHALER INHALATION SCH ×2 (08:56→19:33)
[2018-08-06] MEDS: ACETAMINOPHEN TAB 325 MG TAB PO PRN ×2 (13:17→22:17)
--- NOTE | 2018-08-06 15:35 | P.PN ---
Subjective Progress Note Date: 08/06/18 Principal diagnosis: Febrile illness of unclear etiology This is a 68-year-old white female patient who follows with Dr. Hensley and had a recent history of bronchoscopy for persistent cough. Bronchial wash cultures have all been negative, patient had a bronchoscopy on 07/31/2018. No biopsies were done, patient had the secretions removed from the airways, she was doing well. However patient had been seen in the emergency department following her bronchoscopy for episodes of fever, was treated with Augmentin. The first time in the emergency. Patient refused a chest x-ray, however she did have a CAT scan of the chest which showed very minimal patchy areas of pneumonitis. Her fever was as high as 10 4F. But the patient did not have any pulmonary symptoms, no shortness of breath, no coughing or wheezing. No chest pain, she was recently diagnosed with Graves' disease, and was started on Tapazole. Tapazole has been discontinued in view of recent febrile illness. Chest x-ray was completed in the emergency department on 08/03/2018 he was within normal limits, CT angios did not show any evidence of pulmonary embolism, some patchy areas of minimal pneumonitis. All cultures remain negative, viral studies are negative. Initial lab work showed white blood cell, 4.4, hemoglobin 13.6, electrolytes are within normal limits, BUN is 18 creatinine 0.79. Analysis was negative for any evidence of infection. Today's blood work has been reviewed Objective - Vital Signs Vital signs: Vital Signs Temp 98.6 F 08/06/18 07:00 Pulse 70 08/06/18 07:40 Resp 16 08/06/18 07:40 BP 96/57 08/06/18 07:00 Pulse Ox 94 L 08/06/18 07:00 Intake & Output 08/05/18 08/06/18 08/06/18 18:59 06:59 18:59 Intake Total 700 Balance 700 Intake: Intake, IV Titration 700 Amount Sodium Chloride 0.9% 1, 600 000 ml @ 50 mls/hr IV . Q20H JACKELYN Rx#:[id number] cefTRIAXone 1 gm In 100 Sodium Chloride 0.9% 50 ml @ 100 mls/hr IVPB Q24H JACKELYN Rx#:[id number] Other: Voiding Method Toilet Toilet Toilet # Voids 2 - Exam GENERAL EXAM: Alert, pleasant, 68-year-old white female comfortable in no apparent distress. HEAD: Normocephalic/atraumatic. EYES: Normal reaction of pupils, equal size. Conjunctiva pink, sclera white. NOSE: Clear with pink turbinates. THROAT: No erythema or exudates. NECK: No masses, no JVD, no thyroid enlargement, no adenopathy. CHEST: No chest wall deformity. Symmetrical expansion. LUNGS: Equal air entry with no crackles, wheeze, rhonchi or dullness. CVS: Regular rate and rhythm, normal S1 and S2, no gallops, no murmurs, no rubs ABDOMEN: Soft, nontender. No hepatosplenomegaly, normal bowel sounds, no guarding or rigidity. EXTREMITIES: No clubbing, no edema, no cyanosis, 2+ pulses and upper and lower extremities. MUSCULOSKELETAL: Muscle strength and tone normal. SPINE: No scoliosis or deformity SKIN: No rashes CENTRAL NERVOUS SYSTEM: Alert and oriented -3. No focal deficits, tone is normal in all 4 extremities. PSYCHIATRIC: Alert and oriented -3. Appropriate affect. Intact judgment and insight. - Labs CBC & Chem 7: 08/05/18 08:59 08/04/18 19:10 Labs: Abnormal Lab Results - Last 24 Hours (Table) 08/04/18 08/06/18 08/06/18 Range/Units 19:10 06:48 06:48 ESR 26 H (0-20) mm/hr Procalcitonin 0.99 H (0.02-0.09) ng/mL TSH <0.015 L (0.465-4.680) mIU/L Microbiology - Last 24 Hours (Table) 08/04/18 19:10 Blood Culture - Preliminary Blood No Growth after 24 hours Assessment and Plan Plan: Assessment: #1. Febrile illness following a bronchoscopy of unclear etiology, all bronchial wash cultures and viral cultures have been negative thus far, no specific pulmonary complaints, no shortness of breath, no chest tightness wheezing coughing or phlegm production. Chest x-ray was within normal limits, CT chest revealed minimal patchy areas of minimal pneumonitis, no evidence of pulmonary embolism #2. History of chronic bronchial asthma #3. History of chronic sinus disease with sinus drainage #4. History of hypertension #5. Previous history of pneumonia #6. Recent diagnosis of hyperthyroidism/Graves' disease Plan: Clinically patient remains stable, lung sounds are clear, no pulmonary complaints, no coughing or wheezing or phlegm production, last episode of fever was last night at 7:00 with a T-max of 101.7F, patient remains on room air, with a pulse ox of 94%, she is afebrile today, respirations are even and nonlabored, [place] lung level was elevated suggesting presence of infection or inflammatory process, this could be related to them the reality of the thyroid function. Clinically no signs of infection noted. Chest x-ray and CAT scan were all reviewed by Dr. Cain, only positive for patchy areas of pneumonitis, no evidence of pneumonia. Empiric antibiotics were started per attending physician, continue with nebulized bronchodilators, Symbicort, will follow on as-needed basis. I performed a history & physical examination of the patient and discussed their management with my nurse practitioner, Carole Cuadra. I reviewed the nurse practitioner's note and agree with the documented findings and plan of care. Lung sounds are positive for clear lung sounds. The findings and the impression was discussed with the patient. I attest to the documentation by the nurse practitioner. Time with Patient: Less than 30
--- NOTE | 2018-08-06 21:49 | PN ---
PROGRESS NOTE ATTENDING PHYSICIAN: Dr. Mark Fuller. CHIEF COMPLAINT: Re-evaluation. HISTORY OF PRESENT ILLNESS: This is a 68-year-old who was admitted to the hospital with fever. The patient started having a fever following bronchoscopy last week Monday. The patient has been seen by Dr. Hensley and I felt that the patient's chest x-ray was not remarkable and was unclear the patient's fever. The patient, however, is feeling better today. She has been on Tapazole and her white count is down and in view of this, Tapazole has been discontinued. TSH is still suppressed. T4 is in the normal range. The patient feels much better this morning. REVIEW OF SYSTEMS: Neuro: Denies any headaches, dizziness. Psych: No anxiety. Cardiac: No chest pain, angina, palpitations. Respiratory: Denies shortness of breath, cough, hemoptysis. GI: No nausea, vomiting, abdominal pain, diarrhea. no symptoms of dysuria, hematuria, urgency or frequency. Extremities denies pain or edema. CONSTITUTIONAL: Did have a fever and no chills though. PHYSICAL EXAMINATION: Vital signs reveals temperature is up 101.5 and 101.7 at 7:00 pm last night. Subsequent to that, the patient had defervesced fevers. This morning she is afebrile. Temperature 98.6, pulse 70, respirations 16, blood pressure 196/57, pulse ox 94% on room air. HEENT: Normocephalic. Neck no JVD. CHEST: Clear to auscultation and percussion. Cardiac: Normal S1, S2 with no gallops, murmurs. ABDOMEN: Soft. No palpable masses. Bowel sounds normal. No organomegaly. No abdominal bruits. Extremities reveal no edema. No tenderness. NEUROLOGIC: Awake, alert, oriented with well-coordinated movements. LABORATORY ASSESSMENT: Sedimentation rate was 26. White count 2.8, and 97% neutrophils. ASSESSMENT: 1. Fever, source unknown, on empiric treatment with Rocephin. 2. Hyperthyroidism. 3. Leukopenia. 4. History of essential hypertension. PLAN: The patient is stable, continue present medical regimen. Patient's condition is discussed with the patient. Prognosis is guarded. Continue IV hydration and antibiotic for now. Await blood cultures results. MMODL / IJN: [id number] /
[2018-08-06] MEDS: MONTELUKAST 10 MG TAB PO SCH (22:17)
[2018-08-06] MEDS: HEPARIN SODIUM,PORCINE 5,000 UNIT/ML 1 ML VIAL SQ SCH (23:52)
[2018-08-07] MEDS: METOPROLOL SUCCINATE (ER) 50 MG TAB.ER.24H PO SCH ×2 (07:09→22:03)
[2018-08-07] MEDS: ASPIRIN 81 MG PO SCH (07:09)
[2018-08-07] MEDS: ACETAMINOPHEN TAB 325 MG TAB PO PRN (07:09)
[2018-08-07] MEDS: LIPASE 5,000/PROTEASE 17,000/AMYLASE 24,000 PO SCH (07:10)
[2018-08-07] MEDS: SODIUM CHLORIDE 0.9% 1,000 ML IV SCH ×2 (07:10→22:04)
[2018-08-07] MEDS: HEPARIN SODIUM,PORCINE 5,000 UNIT/ML 1 ML VIAL SQ SCH ×2 (07:10→15:46)
[2018-08-07] MEDS: SYMBICORT 160-4.5 MCG INHALER INHALATION SCH ×2 (07:50→22:11)
[2018-08-07 08:58] LABS: ALT 39 U/L (9-52); AST 36 U/L (14-36); Albumin 3.1 g/dL (3.5-5.0); Alkaline Phosphatase 86 U/L (38-126); Anion Gap 9 mmol/L; Blood Urea Nitrogen 13 mg/dL (7-17); Calcium 9.1 mg/dL (8.4-10.2); Carbon Dioxide 23 mmol/L (22-30); Chloride 106 mmol/L (98-107); Glucose 134 mg/dL (74-99); Potassium 3.2 mmol/L (3.5-5.1); Sodium 138 mmol/L (137-145); Total Bilirubin 0.5 mg/dL (0.2-1.3); Total Protein 6.2 g/dL (6.3-8.2)
--- NOTE | 2018-08-07 09:17 | XR ---
EXAMINATION TYPE: XR chest 2V DATE OF EXAM: 08/07/2018 COMPARISON: 08/03/2018 TECHNIQUE: PA and lateral views submitted. HISTORY: Fever FINDINGS: The lungs are clear and there is no pneumothorax, pleural effusion, or focal pneumonia. Hyperinflat ion of the lungs with subsegmental consolidation and small bilateral effusions. Heart size stable. Un derlying COPD noted and there is hypertrophic and degenerative change of the spine. IMPRESSION: 1. Correlate for COPD. Basilar atelectasis or infiltrate with tiny effusion or pleural thickening sta ble. Right middle lobe nodule reported by CT scan not well-seen by standard x-ray.
[2018-08-07 10:36] LABS: Basophils % (A) 1 %; Eosinophils % (A) 1 %; HCT 33.5 % (34.0-46.0); HGB 11.5 gm/dL (11.4-16.0); Lymphocytes # (A) 1.3 k/uL (1.0-4.8); Lymphocytes % (A) 36 %; MCH 28.5 pg (25.0-35.0); MCHC 34.3 g/dL (31.0-37.0); Mean Platelet Volume 7.4; Monocytes # (A) 0.2 k/uL (0-1.0); Monocytes % (A) 5 %; Neutrophils # (A) 1.9 k/uL (1.3-7.7); Neutrophils % (A) 53 %; Platelet Count 194 k/uL (150-450); Poikilocytosis Slight; RBC 4.04 m/uL (3.80-5.40); WBC 3.6 k/uL (3.8-10.6)
--- NOTE | 2018-08-07 12:48 | P.PN ---
Subjective Progress Note Date: 08/07/18 Principal diagnosis: Fever of unknown origin. This is a 68-year-old white female patient who follows with Dr. Hensley and had a recent history of bronchoscopy for persistent cough. Bronchial wash cultures have all been negative, patient had a bronchoscopy on 07/31/2018. No biopsies were done, patient had the secretions removed from the airways, she was doing well. However patient had been seen in the emergency department following her bronchoscopy for episodes of fever, was treated with Augmentin. The first time in the emergency. Patient refused a chest x-ray, however she did have a CAT scan of the chest which showed very minimal patchy areas of pneumonitis. Her fever was as high as 10 4F. But the patient did not have any pulmonary symptoms, no shortness of breath, no coughing or wheezing. No chest pain, she was recently diagnosed with Graves' disease, and was started on Tapazole. Tapazole has been discontinued in view of recent febrile illness. Chest x-ray was completed in the emergency department on 08/03/2018 he was within normal limits, CT angios did not show any evidence of pulmonary embolism, some patchy areas of minimal pneumonitis. All cultures remain negative, viral studies are negative. Initial lab work showed white blood cell, 4.4, hemoglobin 13.6, electrolytes are within normal limits, BUN is 18 creatinine 0.79. Analysis was negative for any evidence of infection. Today's blood work has been reviewed. The patient is seen today 08/07/2018 in follow-up on the regular medical floor. She is awake and alert in no acute distress. Continues with recurrent fever at 100.1. She is 93% on room air. Hemodynamically stable. She's been up ambulating in the hallway. She is feeling somewhat fatigued but no other pulmonate complaints. Today's chest x-ray reveals evidence of COPD. There is basilar atelectasis/infiltrate with tiny effusion. Blood cultures reveal no growth to date. White count 3.6. Hemoglobin 11.5. Creatinine 0.52. She remains on ceftriaxone. Objective - Vital Signs Vital signs: Vital Signs Temp 100.1 F H 08/07/18 07:00 Pulse 81 08/07/18 07:10 Resp 16 08/07/18 07:10 BP 97/39 08/07/18 07:00 Pulse Ox 93 L 08/07/18 07:00 Intake & Output 08/06/18 08/07/18 08/07/18 18:59 06:59 18:59 Intake Total 1025 Balance 1025 Intake: Intake, IV Titration 1025 Amount Sodium Chloride 0.9% 1, 975 000 ml @ 75 mls/hr IV . [id number] JACKELYN Rx#:[id number] cefTRIAXone 1 gm In 50 Sodium Chloride 0.9% 50 ml @ 100 mls/hr IVPB Q24H JACKELYN Rx#:[id number] Other: Voiding Method Toilet Toilet Toilet # Voids 2 2 - Exam GENERAL EXAM: Alert, active, 68-year-old female patient, comfortable in no apparent distress. On room air. HEAD: Normocephalic. EYES: Normal reaction of pupils, equal size. NOSE: Clear with pink turbinates. THROAT: No erythema or exudates. NECK: No masses, no JVD. CHEST: No chest wall deformity. LUNGS: Equal air entry with faint crackles in the posterior bases. CVS: S1 and S2 normal with no audible murmur, regular rhythm. ABDOMEN: No hepatosplenomegaly, normal bowel sounds, no guarding or rigidity. SPINE: No scoliosis or deformity SKIN: No rashes CENTRAL NERVOUS SYSTEM: No focal deficits, tone is normal in all 4 extremities. EXTREMITIES: There is no peripheral edema. No clubbing, no cyanosis. Peripheral pulses are intact. - Labs CBC & Chem 7: 08/07/18 08:14 08/07/18 08:14 Labs: Abnormal Lab Results - Last 24 Hours (Table) 08/07/18 08/07/18 Range/Units 08:14 08:14 WBC 3.6 L (3.8-10.6) k/uL Hct 33.5 L (34.0-46.0) % Potassium 3.2 L (3.5-5.1) mmol/L Glucose 134 H (74-99) mg/dL Total Protein 6.2 L (6.3-8.2) g/dL Albumin 3.1 L (3.5-5.0) g/dL Microbiology - Last 24 Hours (Table) 08/04/18 19:10 Blood Culture - Preliminary Blood No Growth after 48 hours Assessment and Plan Assessment: Assessment: #1. Febrile illness following a bronchoscopy of unclear etiology, all bronchial wash cultures and viral cultures have been negative thus far, no specific pulmonary complaints, no shortness of breath, no chest tightness wheezing coughing or phlegm production. Chest x-ray was within normal limits, CT chest revealed minimal patchy areas of minimal pneumonitis, no evidence of pulmonary embolism #2. History of chronic bronchial asthma #3. History of chronic sinus disease with sinus drainage #4. History of hypertension #5. Previous history of pneumonia #6. Recent diagnosis of hyperthyroidism/Graves' disease Plan: The patient was seen and evaluated by Dr. Cain. Chest x-ray was reviewed. She remains on ceftriaxone for now. Current temperature 100.1. She remains s table from the pulmonary standpoint. We'll follow the patient on as-needed basis. I, the cosigning physician, performed a history & physical examination of the patient. Lungs sounds with faint crackles in the bilateral posterior bases Maintaining good O2 saturations in the 90s on room air. I discussed the assessment and plan of care with my nurse practitioner, Rafia Brewer. I attest to the above note as dictated by her.
[2018-08-07] MEDS ORDERED: Potassium Replacement Protocol 1 EACH MISC MISCELLANE PRN (15:31)
[2018-08-07] MEDS: POTASSIUM CHLORIDE ER 20 MEQ TAB.ER PO SCH ×2 (15:46→16:59)
[2018-08-07] MEDS ORDERED: AZITHROMYCIN 500 MG TAB PO SCH (16:00)
--- NOTE | 2018-08-08 00:07 | PN ---
PROGRESS NOTE CHIEF COMPLAINT: Re-evaluation. HISTORY OF PRESENT ILLNESS: This is a 68-year-old who was admitted to the hospital with fever and suspected pneumonitis. The patient had just had a bronchoscopy done the day prior. She had a fever. The patient is actually feeling better. She has minimal cough. REVIEW OF SYSTEMS: Neuro: Denies any headaches or dizziness. Psych: No anxiety. Cardiac: No chest pain, angina, palpitations. Respiratory: Denies shortness of breath, cough, hemoptysis. GI no nausea, vomiting, abdominal pain, diarrhea. no symptoms of dysuria or hematuria. Extremities: No pain, had painful IV sites. Constitutional: Chills with low-grade fever. PHYSICAL EXAMINATION: Pleasant female in no distress. Vital signs revealed temperature a 100.1, blood pressure is 97/39, pulse ox 93% on room air. HEENT: Normocephalic. Neck no JVD. CHEST: Clear to auscultation and percussion. Cardiac: Normal S1, S2 with no gallops, murmurs. ABDOMEN: Soft. No palpable masses. Bowel sounds normal. No organomegaly. No abdominal bruits. Extremities reveal no edema. NEUROLOGICAL: Awake, alert, oriented with well-coordinated movements. LABORATORY ASSESSMENT: None new. Patient now white count 3.6, platelet count 194. Potassium was 3.2, replenished. The liver functions normal. ASSESSMENT: 1. Fever, source undetermined. 2. Possible pneumonitis. 3. Essential hypertension. 4. Hypokalemia. 5. Hypothyroidism. PLAN: The patient is stable , continue present medical regimen. Patient's IV fluids have been discontinued. The patient will be started on Zithromax. Potential discharge home tomorrow if remains stable. Discussed with Dr. Cain and he does not feel there is much of significant respiratory infection going on. We will continue treatment. Discharge as mentioned above tomorrow. MMODL / IJN: [id number] /
[2018-08-08] MEDS: HEPARIN SODIUM,PORCINE 5,000 UNIT/ML 1 ML VIAL SQ SCH (02:00)
[2018-08-08 08:33] VITALS: BP 163/79; PULSE 78; RESP 17; TEMP 98.4
[2018-08-08] MEDS: SYMBICORT 160-4.5 MCG INHALER INHALATION SCH (09:56)
--- NOTE | 2018-08-09 09:37 | P.DS ---
Providers Date of admission: 08/04/18 21:02 Expected date of discharge: 08/08/18 Attending physician: Fracisco Stroud Consults: 08/04/18 20:49 Consult Physician Routine Consulting Provider: Dion Hensley Consult Reason/Comments: Pneumonitis Do you want consulting provider notified?: Yes Primary care physician: Doroteo Fuller [facility] Course: This 68-year-old female was admitted to the hospital after repeat visit to the emergency room for fever and chills. The patient had a bronchoscopy done on 08/01/2018. This was because of increasing cough. No significant pathology no rodrigo. Patient's cultures were negative except for some candidiasis probably from the use of oral inhalers. Patient's chest x-ray was unremarkable on 3 different occasions. A CAT scan had suggested small areas of pneumonitis which would be postbronchoscopic mild inflammation.. Patient was seen by pulmonary. She was empirically placed on antibiotic Rocephin switched to Zithromax on discharge. P atient did defervesce on the antibiotic cultures are negative. Eyes resume the patient had some pneumonitis. She also has recently been diagnosed to have hyperthyroidism/Graves' disease. She was on Tapazole but did get leukopenic and thus it was discontinued after discussion with the central sterile tech Dr. Crawford. It is felt that the patient's fever was not from Tapazole. She is stable at the time of discharge. Follow-up with outpatient. Final diagnoses 1. Probable pneumonitis 2. Mild persistent bronchial asthma 3. Essential hypertension 4. Graves' disease 5. Leukopenia secondary to Tapazole Patient Condition at Discharge: Serious Plan - Discharge Summary Discharge Rx Participant: Yes New Discharge Prescriptions: New Acetaminophen Tab [Tylenol] 650 mg PO Q6HR PRN tab PRN Reason: Mild Pain Or Fever > 100.5 Azithromycin [Zithromax] 500 mg PO DAILY@1600 #3 tab Continue amLODIPine BESYLATE/BENAZEPRIL [amLODIPine BESYLATE/BENAZEPRIL 10-20 MG] 1 cap PO DAILY Metoprolol Succinate (ER) [Toprol XL] 50 mg PO BID Hydrochlorothiazide [Hydrodiuril] 25 mg PO DAILY Qnasl [place] 1 spray EA NOSTRIL QAM L.acidoph,Paracasei, B.lactis [Probiotic] 1 cap PO DAILY Black Seed Oil 1,000 mg PO DAILY Discontinued Budesonide-Formot 160-4.5 Mcg [Symbicort 160-4.5 Mcg Inhaler] 2 puff INHALATION RT-BID Aspirin [Adult Low Dose Aspirin EC] 81 mg PO DAILY Methimazole [Tapazole] 10 mg PO DAILY Montelukast [Singulair] 10 mg PO HS Amoxicillin/Potassium Clav [Augmentin 875-125 Tablet] 1 tab PO Q12HR Discharge Medication List Black Seed Oil 1,000 mg PO DAILY 07/30/18 [History] Hydrochlorothiazide [Hydrodiuril] 25 mg PO DAILY 07/30/18 [History] L.acidoph,Paracasei, B.lactis [Probiotic] 1 cap PO DAILY 07/30/18 [History] Metoprolol Succinate (ER) [Toprol XL] 50 mg PO BID 07/30/18 [History] Qnasl [place] 1 spray EA NOSTRIL QAM 07/30/18 [History] amLODIPine BESYLATE/BENAZEPRIL [amLODIPine BESYLATE/BENAZEPRIL 10-20 MG] 1 cap PO DAILY 07/30/18 [History] Acetaminophen Tab [Tylenol] 650 mg PO Q6HR PRN tab 08/08/18 [Rx] Azithromycin [Zithromax] 500 mg PO DAILY@1600 #3 tab 08/08/18 [Rx] Follow up Appointment(s)/Referral(s): Doroteo Fuller MD [Primary Care Provider] - 1-2 days (Office will be in contact with patient upon discharge for a follow up appointment) Patient Instructions/Handouts: Viral Pneumonia (DC) Discharge Disposition: HOME SELF-CARE
== END 2018-08-08 11:25 | disposition home or self-care (01) | DRG 194 ==
LOC: EC 17:58 → 4SSUR 21:02
PROVIDERS: ADMIT Internal Medicine; ATTEND Internal Medicine
DX: J18.9 Pneumonia, unspecified organism (principal); J44.0 Chronic obstructive pulmonary disease with (acute) lower respiratory infection; J98.11 Atelectasis; E05.00 Thyrotoxicosis with diffuse goiter without thyrotoxic crisis or storm; E78.00 Pure hypercholesterolemia, unspecified; E87.6 Hypokalemia; I10 Essential (primary) hypertension; J45.30 Mild persistent asthma, uncomplicated; Z79.51 Long term (current) use of inhaled steroids; Z79.82 Long term (current) use of aspirin; Z82.49 Family history of ischemic heart disease and other diseases of the circulatory system; Z83.3 Family history of diabetes mellitus; Z87.01 Personal history of pneumonia (recurrent); Z83.2 Family history of diseases of the blood and blood-forming organs and certain disorders involving the immune mechanism; D70.8 Other neutropenia; T38.2X5A Adverse effect of antithyroid drugs, initial encounter; D70.2 Other drug-induced agranulocytosis; M19.90 Unspecified osteoarthritis, unspecified site; Z88.2 Allergy status to sulfonamides; Z79.899 Other long term (current) drug therapy
CPT/HCPCS: 36415; 71046; 71275; 80053; 81003; 83605; 84145; 84439; 84443; 84484; 85025; 85379; 85610; 85652; 85730; 87040; 87086; 87502; 93005; 94640; 96361; 96365; 96366; 96367; 96375; 96376; 99284; 99285

== ENCOUNTER → 2021-02-24 | Outpatient (CLI) | payer MEDICARE ==
--- NOTE | 2021-02-25 11:36 | MM ---
Reason for exam: screening (asymptomatic). Last mammogram was performed 2 years and 10 months ago. History: Patient is postmenopausal. Took estrogen for 1 year beginning at age 52. Physical Findings: A clinical breast exam by your physician is recommended on an annual basis and results should be correlated with mammographic findings. MG 3D Screening Mammo W/Cad Bilateral CC, MLO, and XCCL view(s) were taken. Prior study comparison: April 17, 2018, bilateral MG 3d screening mammo w/cad. December 31, 2015, bilateral MG 3d screening mammo w/cad. The breast tissue is heterogeneously dense. This may lower the sensitivity of mammography. There is no discrete abnormality. No significant changes when compared with prior studies. ASSESSMENT: Negative, BI-RAD 1 RECOMMENDATION: Routine screening mammogram of both breasts in 1 year.
== END | disposition home or self-care (01) ==
LOC: RADMAMWWP 09:51
PROVIDERS: ATTEND Internal Medicine
DX: Z12.31 Encounter for screening mammogram for malignant neoplasm of breast (principal); Z78.0 Asymptomatic menopausal state
CPT/HCPCS: 77063; 77067

== ENCOUNTER → 2022-04-08 | Outpatient (CLI) | payer MEDICARE ==
[~2022-04-08] MED LIST changes: -LACTATED RINGERS 1,000 ML IV SCH; -LIDOCAINE 1% 20 ML VIAL (10MG/ML) FOR IV START INTRADERMA PRN; +REGADENOSON 0.4 MG/5 ML SYRINGE IV PRN
--- NOTE | 2022-04-08 11:39 | NM ---
EXAMINATION TYPE: NM stress lexiscan cardiolite DATE OF EXAM: 04/08/2022 COMPARISON: NONE HISTORY: Chest pain TECHNIQUE: After the intravenous administration of 9.2 mCi Tc 99m Sestamibi - Cardiolite resting SPE CT images acquired 45 minutes post injection. The patient received 0.4mg Lexiscan, 24.0 mCi Tc 99m Sestamibi - Stress images obtained [address] injection FINDINGS: Review of stress and rest SPECT images demonstrates fixed defect involving the inferior wall myocardi um. Spotting reduced wall motion activity. Gated analysis shows an estimated left ventricular ejecti on fraction of 61 %. IMPRESSION: 1. Fixed defect involving the inferior wall myocardium correlate for history of previous infarction. Tiny area of stress-induced reversibility involving the inferior apical myocardium could not be entir ghislaine excluded but is felt to be most likely artifactual.
--- NOTE | 2022-04-08 12:06 | CA ---
Lexiscan Nuclear Stress Test Report Name: Rama Frias Exam Date: 04/08/2022 09:45 Exam Location: [facility] Ht (in): 64 Wt (lb): 165 BSA: 1.80 Ordering Phys: Peyman Padilla MD Referring Phys: Randy, Technologist: Byron Magana Age: 71 Gender: F : 1950 Procedure CPT: Indications: I25.10 coronary arteriosclerosis ICD-10 Codes: Patient History: Medications: Meds past 24 hrs: Pretest Chest Pain: STRESS TEST Lexiscan Protocol Exercise Duration (min:sec): 02:[address] Depressions (mm): Angina Score: Mckeon Score: Resting HR (bpm): 58 Peak HR (bpm): 73 Resting BP (mmHg): 126 / 81 Peak BP (mmHg): 132 / 76 MPHR: 149 Target HR: 127 % MPHR: 49 METS: 1.0 Total Dose: Peak Dose: Atropine: Double Product: 9636 BP Response: Stress Termination: PROTOCOL COMPLETE Stress Symptoms: NO SYMPTOMS Stress Summary: ECG ANALYSIS Resting ECG: Stress ECG: CONCLUSIONS Lexiscan Cardiolite stress test Baseline heart rate 50 beats a minute, Baseline blood pressure 126/81 mmHg Baseline 12-lead EKG normal No ECG evidence for ischemia during next confusion Normal heart rate and blood pressure response Nuclear portion will be reported separately Dr. George Song MD (Electronically Signed) Final Date: 08 April 2022 12:05
== END | disposition home or self-care (01) ==
LOC: RADNMMAIN 08:04
PROVIDERS: ATTEND Internal Medicine
DX: I25.10 Atherosclerotic heart disease of native coronary artery without angina pectoris (principal)
CPT/HCPCS: 93017; 78452; A9500; J2785

== ENCOUNTER 2022-04-13 07:48 | Day surgery (SDC) | payer MEDICARE ==
[~2022-04-13 07:48] MED LIST changes: +LACTATED RINGERS 1,000 ML IV SCH; +LIDOCAINE 1% (10MG/ML) FOR IV START INTRADERMA PRN; +MOXIFLOXACIN HCL 0.5% DROPS 3 ML BTL OP PRN; -REGADENOSON 0.4 MG/5 ML SYRINGE IV PRN; +TETRACAINE 0.5% OPHTH (PF) DROPS 4 ML BTL OP PRN; +TIMOLOL 0.5% OPHTH DROPS 5 ML BTL OP PRN
[2022-04-13] MEDS ORDERED: LACTATED RINGERS 1,000 ML IV ONE (08:30)
[2022-04-13] MEDS: CYCLOPENTOLATE 1% OPHTH SOLN 2 ML BTL OP PRN ×3 (08:33→08:45)
[2022-04-13] MEDS: PHENYLEPHRINE 2.5% OPHTH DRP 2ML OP PRN ×3 (08:36→08:48)
[2022-04-13 08:49] VITALS: RESP 16; TEMP 98.3
[2022-04-13] MEDS ORDERED: MIDAZOLAM 2 MG/2 ML VIAL ONE (09:35)
[2022-04-13] MEDS ORDERED: fentaNYL (PF) 50 MCG/ML 2 ML AMP ONE (09:35)
[2022-04-13] MEDS ORDERED: EPINEPHrine (PF) 0.3 ML in BALANCED SALT IRRIG SOLN COMB2 500 ML IRRIGATION ONE (09:42)
[2022-04-13] MEDS ORDERED: LIDOCAINE 1% (PF) 10MG/ML VIAL MISCELLANE ONE (09:43)
[2022-04-13] MEDS ORDERED: BALANCED SALT IRRIG SOLN COMB2 15 ML IRRIG.SOLN IRRIGATION ONE (09:43)
[2022-04-13] MEDS ORDERED: HYALURONATE SODIUM INTRAOCULAR 1 EACH SYRINGE (12MG/ML) INTRAOCULA ONE (09:43)
--- NOTE | 2022-04-13 10:02 | P.OP ---
Date of Procedure: 04/13/22 Preoperative Diagnosis: NS & CS & PSC Postoperative Diagnosis: same Procedure(s) Performed: PIOL< OS Implants: TFAT00 18.50 Anesthesia: MAC Surgeon: Bert Coffey Pathology: none sent Condition: stable Disposition: same day Indications for Procedure: blurry vision Operative Findings: no complications
[2022-04-13 10:32] VITALS: BP 107/57; PULSE 52
--- NOTE | 2022-04-14 11:59 | OP ---
OPERATIVE REPORT PROCEDURES PERFORMED: Phacoemulsification of cataract and intraocular lens implant of the left eye. PREOPERATIVE DIAGNOSES: 1. Nuclear sclerosis. 2. Cortical sclerosis. 3. Posterior subcapsular cataract. POSTOPERATIVE DIAGNOSES: 1. Nuclear sclerosis. 2. Cortical sclerosis. 3. Posterior subcapsular cataract. ESTIMATED BLOOD LOSS: Zero. SPECIMEN TAKEN: None. NARRATIVE: After obtaining the appropriate consent, the patient was brought to the operating room where the patient was placed under cardiac monitoring and prepped and draped in the usual sterile manner. At the 5 o'clock position, a 15-degree super sharp blade was used to create a paracentesis followed by instillation of 1% Xylocaine MPF 50:50 mix with BSS into the anterior chamber. This was followed by Amvisc viscoelastic to stabilize the anterior chamber. At the 3 o'clock position a self-sealing corneal flap incision was created using 2.8 mm andrew keratome. A cystotome was used to initiate a continuous tear capsulorrhexis which was completed with the Utrata forceps. A Binkhorst cannula was used to hydrodissect the lens nucleus followed by hydrodelineation. Phacoemulsification of the lens was performed utilizing phacochop in 9.81 seconds at 17% power. The remaining cortical material was removed using the irrigation aspiration mode followed by additional 1% Xylocaine MPF into the anterior chamber followed by viscoelastic to stabilize the capsular bag. An Devin TFAT00 18.5 diopters posterior chamber lens was placed into the capsular bag without difficulty. The remaining viscoelastic material was removed from the anterior chamber with the irrigation/aspiration. Balanced salt solution was used to normalize the intraocular pressure. The incision was checked for watertight integrity. The patient then received 2 drops of 0.5% timolol followed by 2 drops Vigamox, was lightly patched and shielded in the usual manner. There were no complications from the procedure. The patient tolerated the procedure well and was returned to recovery in good condition. MMODL / IJN: [id number] /
== END 2022-04-13 10:55 | disposition home or self-care (01) ==
LOC: OR 07:48
PROVIDERS: ATTEND Ophthalmology
DX: H25.12 Age-related nuclear cataract, left eye (principal); H25.092 Other age-related incipient cataract, left eye; H25.012 Cortical age-related cataract, left eye; I10 Essential (primary) hypertension; J45.909 Unspecified asthma, uncomplicated; E07.9 Disorder of thyroid, unspecified; Z79.890 Hormone replacement therapy; Z88.2 Allergy status to sulfonamides; Z79.1 Long term (current) use of non-steroidal anti-inflammatories (NSAID); Z79.51 Long term (current) use of inhaled steroids; Z79.899 Other long term (current) drug therapy
CPT/HCPCS: 66982; V2632; J2250; J0171; J3010; J2001

== ENCOUNTER → 2022-11-07 | Outpatient (CLI) | payer MEDICARE ==
--- NOTE | 2022-11-07 16:56 | CA ---
Transthoracic Echo Report Name: Rama Frias Age: 72 Gender: F : 1950 Exam Date: 11/07/2022 15:15 Exam Location: [facility] Ht (in): 64 Wt (lb): 170 Ordering Physician: Peyman Padilla MD Attending/Referring Phys: Peyman Padilla MD Flag Signalman Daniela Loera RDCS Procedure CPT: Indications: I25.10 ATHSCL HEART DISEASE OF [place] CORONARY ART Cardiac Hx: Technical Quality: Fair Contrast 1: Total Dose (mL): Contrast 2: Total Dose (mL): MEASUREMENTS (Male / Female) Normal Values 2D ECHO LV Diastolic Diameter PLAX 3.9 cm 4.2 - 5.9 / 3.9 - 5.3 cm LV Systolic Diameter PLAX 2.0 cm IVS Diastolic Thickness 1.2 cm 0.6 - 1.0 / 0.6 - 0.9 cm LVPW Diastolic Thickness 1.1 cm 0.6 - 1.0 / 0.6 - 0.9 cm LV Relative Wall Thickness 0.6 RV Internal Dim ED PLAX 4.0 cm LA Volume 65.8 cm??? 18 - 58 / 22 - 52 cm??? M-MODE Aortic Root Diameter MM 3.6 cm LA Systolic Diameter MM 4.2 cm LA Ao Ratio MM 1.2 AV Cusp Separation MM 2.3 cm DOPPLER AV Peak Velocity 133.6 cm/s AV Peak Gradient 7.1 mmHg AV Mean Velocity 93.3 cm/s AV Mean Gradient 3.8 mmHg AV Velocity Time Integral 26.3 cm AI Peak Velocity 378.9 cm/s AI Peak Gradient 57.4 mmHg AI Pressure Half Time 448.3 ms LVOT Peak Velocity 117.5 cm/s LVOT Peak Gradient 5.5 mmHg LVOT Velocity Time Integral 23.4 cm MV Area PHT 2.5 cm??? Mitral E Point Velocity 62.9 cm/s Mitral A Point Velocity 79.0 cm/s Mitral E to A Ratio 0.8 MV Deceleration Time 306.2 ms MV E' Velocity 4.1 cm/s Mitral E to MV E' Ratio 15.4 TR Peak Velocity 270.4 cm/s TR Peak Gradient 29.2 mmHg Right Ventricular Systolic Press 33.0 mmHg FINDINGS Left Ventricle Mildly increased left ventricular wall thickness. Left ventricular cavity size normal. Normal left ventricular systolic function with no obvious regional wall motion abnormalities. Left ventricular ejection fraction is estimated at 55-60 %. Right Ventricle Mild right ventricular dilatation. Right ventricular systolic pressure within normal limits. Right Atrium Normal right atrial size. Left Atrium Moderately increased left atrial volume. Mitral Valve Mild mitral regurgitation. Mitral valve thickened. Aortic Valve Trileaflet aortic valve. Trace to mild aortic regurgitation. Tricuspid Valve Structurally normal tricuspid valve. Mild tricuspid regurgitation. Pulmonic Valve Trace pulmonic regurgitation. Pericardium No pericardial effusion. Aorta Normal size aortic root and proximal ascending aorta. CONCLUSIONS Normal LV systolic function Left atrial enlargement Mild mitral regurgitation Previewed by: Dr. Valentín Hoff MD (Electronically Signed) Final Date: 07 November 2022 16:55
== END | disposition home or self-care (01) ==
LOC: RADECHMAIN 14:45
PROVIDERS: ATTEND Internal Medicine
DX: I34.0 Nonrheumatic mitral (valve) insufficiency (principal); I25.10 Atherosclerotic heart disease of native coronary artery without angina pectoris
CPT/HCPCS: 93306

== ENCOUNTER 2023-02-23 12:00 | Emergency (ER) | payer MEDICARE, OTHER ==
[2023-02-23 12:12] VITALS: TEMP 98.8
[2023-02-23 12:33] LABS: Basophils % (A) 1 %; Eosinophils # (A) 0.3 k/uL (0-0.7); Eosinophils % (A) 5 %; HCT 43.1 % (34.0-46.0); Lymphocytes # (A) 1.3 k/uL (1.0-4.8); Lymphocytes % (A) 27 %; MCH 32.1 pg (25.0-35.0); MCHC 34.9 g/dL (31.0-37.0); Mean Platelet Volume 6.6; Monocytes # (A) 0.3 k/uL (0-1.0); Monocytes % (A) 7 %; Neutrophils # (A) 2.7 k/uL (1.3-7.7); Neutrophils % (A) 58 %; Platelet Count 236 k/uL (150-450); RBC 4.69 m/uL (3.80-5.40); RDW 12.5 % (11.5-15.5); WBC 4.8 k/uL (3.8-10.6)
[2023-02-23 13:08] LABS: ALT 27 U/L (4-34); AST 28 U/L (14-36); African American GFR (CKD) >90 (>60 ml/min/1.73 sqM); Albumin 4.9 g/dL (3.5-5.0); Alkaline Phosphatase 67 U/L (38-126); Anion Gap 14 mmol/L; Blood Urea Nitrogen 16 mg/dL (7-17); Calcium 11.7 mg/dL (8.4-10.2); Carbon Dioxide 25 mmol/L (22-30); Chloride 100 mmol/L (98-107); Glucose 101 mg/dL (74-99); Non-African American GFR(CKD) 90 (>60 ml/min/1.73 sqM); Potassium 3.8 mmol/L (3.5-5.1); Sodium 139 mmol/L (137-145); Total Bilirubin 0.6 mg/dL (0.2-1.3)
[2023-02-23] MEDS ORDERED: MECLIZINE 12.5 MG TAB PO STA (13:08)
[2023-02-23 13:30] LABS: INR 0.9 (<1.2)
--- NOTE | 2023-02-23 14:14 | CT ---
EXAMINATION TYPE: CT brain wo con CT DLP: 1203.4 mGycm, Automated exposure control for dose reduction was used. DATE OF EXAM: 02/23/2023 2:07 PM COMPARISON: None. CLINICAL INDICATION:Female, 72 years old with history of hypertensive, dizzy, vomiting, headache, Diz zy, nausea, hypertension TECHNIQUE: Brain: Axial CT images of the brain were obtained with coronal and sagittal reformats created and rev iewed. Contrast used: None. Oral contrast used: None. FINDINGS: Brain: Extra-axial spaces: No abnormal extra-axial fluid collections. Ventricular system: Dilatation in proportion to cerebral atrophy. Cerebral parenchyma: Cerebral atrophy. No acute intraparenchymal hemorrhage or mass effect. The riddle -white junction is well differentiated. Scattered hypoattenuating areas are seen within the white mat ter. Cerebellum: Unremarkable. Mass effect: No evidence of midline shift. Intracranial vasculature: unremarkable Soft tissues: Normal. Calvarium/osseous structures: No depressed skull fracture. Sclerotic focus within the C2 vertebrae li isabell representing bone island measuring 5 mm. Paranasal sinuses and mastoid air cells: Mild scattered paranasal sinus disease. Visualized orbits: Bilateral aphakia IMPRESSION: 1. No acute intracranial process. 2. Nonspecific white matter changes, likely secondary to chronic small vessel ischemic disease.
--- NOTE | 2023-02-23 14:34 | ED ---
Dizziness HPI - General Chief Complaint: Dizziness Stated Complaint: light headed Time Seen by Provider: 02/23/23 12:05 Source: patient Mode of arrival: ambulatory Limitations: no limitations - History of Present Illness Initial Comments: 72-year-old female presents emergency department reporting dizziness. States that she was sitting in bed exercising and doing some sit ups when she had sudden onset of room spinning sensation. States that it was present for approximately 5 minutes. She felt nauseated and had an episode of vomiting. Symptoms were worse with positional changes. Eventually the symptoms resolved on their own. She states that this time she still feels slightly foggy. She denies any headaches or visual changes. Does admit to chronic floaters for which she is under the care of an minister helper. She denies any numbness, ti ngling or weakness in her extremities. No ataxia. No history of stroke. No history of vertigo. Does have chronic cerumen impaction. Denies chest pain or shortness of breath. No other alleviating, precipitating or modifying factors - Related Data Home Medications Medication Instructions Recorded Confirmed Black Seed Oil 1,000 mg PO DAILY 07/30/18 02/23/23 L.acidoph,Paracasei, B.lactis 1 cap PO DAILY 07/30/18 02/23/23 [Probiotic] Metoprolol Succinate (ER) [Toprol 50 mg PO BID 07/30/18 02/23/23 XL] amLODIPine BESYLATE/BENAZEPRIL 1 cap PO DAILY 07/30/18 02/23/23 [amLODIPine BESYLATE/BENAZEPRIL 10-20 MG] hydroCHLOROthiazide [Hydrodiuril] 25 mg PO DAILY 07/30/18 02/23/23 Budesonide/Formoterol Fumarate 2 puff INHALATION RT-BID 05/21/21 02/23/23 [Symbicort 160-4.5 Mcg Inhaler] Levothyroxine Sodium [Synthroid] 75 mcg PO DAILY 05/21/21 02/23/23 Albuterol Inhaler [Ventolin Hfa 2 puff INHALATION RT-Q6H PRN 02/23/23 02/23/23 Inhaler] Aspirin EC [Ecotrin Low Dose] 81 mg PO Q48H 02/23/23 02/23/23 Calcium Carbonate [Calcium] 600 mg PO DAILY 10/26/23 10/26/23 Cetirizine HCl [Zyrtec] 20 mg PO DAILY 02/23/23 02/23/23 Cholecalciferol [Vitamin D3 (125 125 mcg PO DAILY 02/23/23 02/23/23 Mcg = 5000 Iu)] Multivit-Min/FA/Lycopen/Lutein 1 tab PO DAILY 02/23/23 02/23/23 [Centrum Silver Tablet] Allergies Allergy/AdvReac Type Severity Reaction Status Date / Time Sulfa (Sulfonamide Allergy Swelling Verified 02/23/23 13:55 Antibiotics) of face and lips, red skin Review of Systems ROS Statement: Those systems with pertinent positive or pertinent negative responses have been documented in the HPI. ROS Other: All systems not noted in ROS Statement are negative. 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 Past Anesthesia/Blood Transfusion Reactions: Previous Problems w/ Anesthesia, Motion Sickness Additional Past Anesthesia/Blood Transfusion Reaction / Comment(s): had bronch 2019 & next day developed fever & N/V, had ER visits related to & then was admitted, on A/B, thought to be pneumonitis, has never had problems w/surgery or anesthesia before, was not felt that was related to anesthesia Past Psychological History: No Psychological Hx Reported Smoking Status: Never smoker Past Alcohol Use History: Occasional - Past Family History Brother(s) Family Medical History: Deep Vein Thrombosis (DVT) General Exam Limitations: no limitations General appearance: alert, in no apparent distress Head exam: Present: atraumatic, normocephalic, normal inspection Eye exam: Present: PERRL, EOMI, nystagmus (Horizontal). Absent: scleral icterus, conjunctival injection, periorbital swelling ENT exam: Present: normal exam, mucous membranes moist Neck exam: Present: normal inspection. Absent: tenderness, meningismus, lymphadenopathy Respiratory exam: Present: normal lung sounds bilaterally. Absent: respiratory distress, wheezes, rales, rhonchi, stridor Cardiovascular Exam: Present: regular rate, normal rhythm, normal heart sounds. Absent: systolic murmur, diastolic murmur, rubs, gallop, clicks GI/Abdominal exam: Present: soft, normal bowel sounds. Absent: distended, tenderness, guarding, rebound, rigid Extremities exam: Present: normal inspection, full ROM, normal capillary refill. Absent: tenderness, pedal edema, joint swelling, calf tenderness Back exam: Present: normal inspection Neurological exam: Present: alert, oriented X3, CN II-XII intact Psychiatric exam: Present: normal affect, normal mood Skin exam: Present: warm, dry, intact, normal color. Absent: rash Course Vital Signs 02/23/23 02/23/23 12:02 15:14 Temperature 98.8 F Pulse Rate 62 61 Respiratory 18 16 Rate Blood Pressure 186/89 134/86 O2 Sat by Pulse 96 97 Oximetry Medical Decision Making - Medical Decision Making Was pt. sent in by a medical professional or institution (, PA, MAILING MACHINE HELPER, urgent care, hospital, or [facility]...) When possible be specific @ -No Did you speak to anyone other than the patient for history (EMS, parent, family, police, friend...)? What history was obtained from this source @ -No Did you review nursing and triage notes (agree or disagree)? Why? @ -I reviewed and agree with nursing and triage notes Were old charts reviewed (outside hosp., previous admission, EMS record, old EKG, old radiological studies, urgent care reports/EKG's, [facility] records)? Report findings @ -No old charts were reviewed Differential Diagnosis (chest pain, altered mental status, abdominal pain women, abdominal pain men, vaginal bleeding, weakness, fever, dyspnea, syncope, headache, dizziness, GI bleed, back pain, seizure, CVA, palpatations, mental health, musculoskeletal)? @ -Differential Dizziness: Benign paroxysmal positional Vertigo, Menieres disease, otitis media, acoustic neuroma, vertebrobasilar insufficiency, cerebellar stroke, encephalitis, hypovolemic, arrhythmia, coronary artery syndrome, anemia, this is not meant to be an all-inclusive list EKG interpreted by me (3pts min.). @ -Yes demonstrated sinus rhythm rate of 60. OK interval 156. QRS 84. QTC of 420. No acute ST segment elevations or depressions X-rays interpreted by me (1pt min.). @ -None done CT interpreted by me (1pt min.). @ -yeS and demonstrates no acute process U/S interpreted by me (1pt. min.). @ -None done What testing was considered but not performed or refused? (CT, X-rays, U/S, labs)? Why? @ -None What meds were considered but not given or refused? Why? @ -None Did you discuss the management of the patient with other professionals (professionals i.e. , PA, MAILING MACHINE HELPER, lab, RT, psych nurse, social service technician, growth media mixer mushroom, teacher, activities officer, continuous pillowcase cutter)? Give summary @ -No Was smoking cessation discussed for >3mins.? @ -No Was critical care preformed (if so, how long)? @ -No Were there social determinants of health that impacted care today? How? (Homelessness, low income, unemployed, alcoholism, drug addiction, transportation, low edu. Level, literacy, decrease access to med. care, senior living, rehab)? @ -No Was there de-escalation of care discussed even if they declined (Discuss DNR or withdrawal of care, Hospice)? DNR status @ -No What co-morbidities impacted this encounter? (DM, HTN, Smoking, COPD, CAD, Cancer, CVA, ARF, Chemo, Hep., AIDS, mental health diagnosis, sleep apnea, morbid obesity)? @ -Hypertension Was patient admitted / discharged? Hospital course, mention meds given and route, prescriptions, significant lab abnormalities, going to OR and other pertinent info. @ -Upon arrival patient was placed into hallway 18. A thorough history and physical exam was performed. Patient does have some nystagmus horizontally. She is given a dose of meclizine. Laboratory studies are conducted. She does go for a CT of her head. Upon return results they are discussed with the patient. She feels much improved at this time. Patient will be discharged home and is instructed to follow up with ENT. We did make an appointment for her. We did offer to remove the cerumen from her ears however she would prefer if the ENT did it. I recommended Debrox eardrops. I also recommended a prescription for meclizine however patient states that she would like to hold off at this time. She does have an appointment with her primary care doctor next week. She is instructed to rest. I did provide her with the Kathy maneuver instructions. Return should she have any new or worsening symptoms. Patient agreeable to the plan she was discharged in stable condition Undiagnosed new problem with uncertain prognosis? @ -Yes Drug Therapy requiring intensive monitoring for toxicity (Heparin, Nitro, Insulin, Cardizem)? @ -No Were any procedures done? @ -No Diagnosis/symptom? @ -Acute vertigo, suspected BPPV Acute, or Chronic, or Acute on Chronic? @ -Acute Uncomplicated (without systemic symptoms) or Complicated (systemic symptoms)? @ -Complicated Side effects of treatment? @ -No Exacerbation, Progression, or Severe Exacerbation? @ -No Poses a threat to life or bodily function? How? (Chest pain, [place], [place], pneumonia, PE, COPD, DKA, ARF, appy, cholecystitis, CVA, Diverticulitis, Homicidal, Suicidal, threat to staff... and all critical care pts) @ -No - Lab Data Result diagrams: 02/23/23 12:16 02/23/23 12:16 Lab Results 02/23/23 02/23/23 02/23/23 Range/Units 12:16 12:16 12:16 WBC 4.8 (3.8-10.6) k/uL RBC 4.69 (3.80-5.40) m/uL Hgb 15.0 (11.4-16.0) gm/dL Hct 43.1 (34.0-46.0) % MCV 92.0 (80.0-100.0) fL MCH 32.1 (25.0-35.0) pg MCHC 34.9 (31.0-37.0) g/dL RDW 12.5 (11.5-15.5) % Plt Count 236 (150-450) k/uL MPV 6.6 Neutrophils % 58 % Lymphocytes % 27 % Monocytes % 7 % Eosinophils % 5 % Basophils % 1 % Neutrophils # 2.7 (1.3-7.7) k/uL Lymphocytes # 1.3 (1.0-4.8) k/uL Monocytes # 0.3 (0-1.0) k/uL Eosinophils # 0.3 (0-0.7) k/uL Basophils # 0.0 (0-0.2) k/uL PT 10.0 (10.0-12.5) sec INR 0.9 (<1.2) Sodium 139 (137-145) mmol/L Potassium 3.8 (3.5-5.1) mmol/L Chloride 100 (98-107) mmol/L Carbon Dioxide 25 (22-30) mmol/L Anion Gap 14 mmol/L BUN 16 (7-17) mg/dL Creatinine 0.63 (0.52-1.04) mg/dL Est GFR (CKD-EPI)AfAm >90 (>60 ml/min/1.73 sqM) Est GFR (CKD-EPI)NonAf 90 (>60 ml/min/1.73 sqM) Glucose 101 H (74-99) mg/dL Calcium 11.7 H (8.4-10.2) mg/dL Total Bilirubin 0.6 (0.2-1.3) mg/dL AST 28 (14-36) U/L ALT 27 (4-34) U/L Alkaline Phosphatase 67 (38-126) U/L Troponin I (0.000-0.034) ng/mL Total Protein 9.0 H (6.3-8.2) g/dL Albumin 4.9 (3.5-5.0) g/dL 02/23/23 Range/Units 12:16 WBC (3.8-10.6) k/uL RBC (3.80-5.40) m/uL Hgb (11.4-16.0) gm/dL Hct (34.0-46.0) % MCV (80.0-100.0) fL MCH (25.0-35.0) pg MCHC (31.0-37.0) g/dL RDW (11.5-15.5) % Plt Count (150-450) k/uL MPV Neutrophils % % Lymphocytes % % Monocytes % % Eosinophils % % Basophils % % Neutrophils # (1.3-7.7) k/uL Lymphocytes # (1.0-4.8) k/uL Monocytes # (0-1.0) k/uL Eosinophils # (0-0.7) k/uL Basophils # (0-0.2) k/uL PT (10.0-12.5) sec INR (<1.2) Sodium (137-145) mmol/L Potassium (3.5-5.1) mmol/L Chloride (98-107) mmol/L Carbon Dioxide (22-30) mmol/L Anion Gap mmol/L BUN (7-17) mg/dL Creatinine (0.52-1.04) mg/dL Est GFR (CKD-EPI)AfAm (>60 ml/min/1.73 sqM) Est GFR (CKD-EPI)NonAf (>60 ml/min/1.73 sqM) Glucose (74-99) mg/dL Calcium (8.4-10.2) mg/dL Total Bilirubin (0.2-1.3) mg/dL AST (14-36) U/L ALT (4-34) U/L Alkaline Phosphatase (38-126) U/L Troponin I <0.012 (0.000-0.034) ng/mL Total Protein (6.3-8.2) g/dL Albumin (3.5-5.0) g/dL Disposition Clinical Impression: Vertigo Disposition: HOME SELF-CARE Condition: Stable Instructions (If sedation given, give patient instructions): Vertigo (ED) Additional Instructions: Your appointment is on the with the ENT. Follow-up with primary care doctor next week. Return for any new or worsening symptoms Is patient prescribed a controlled substance at d/c from ED?: No Referrals: Peyman Padilla MD [Primary Care Provider] - 1-2 days Nathanael Lord DO [Doctor of Osteopathic Medicine] - 03/17/23 9:30 am (If needing to be seen sooner please call primary care provider. ) Time of Disposition: 15:04
[2023-02-23 15:25] VITALS: BP 134/86; PULSE 61; RESP 16
== END 2023-02-23 15:16 | disposition home or self-care (01) ==
LOC: EC 12:00
DX: R42 Dizziness and giddiness (principal); J45.909 Unspecified asthma, uncomplicated; I10 Essential (primary) hypertension; E07.9 Disorder of thyroid, unspecified; Z79.890 Hormone replacement therapy; Z79.51 Long term (current) use of inhaled steroids; Z79.899 Other long term (current) drug therapy; Z88.2 Allergy status to sulfonamides
CPT/HCPCS: 36415; 70450; 80053; 84484; 85025; 85610; 93005; 99284

== ENCOUNTER → 2023-05-03 | Outpatient (CLI) | payer MEDICARE ==
--- NOTE | 2023-05-05 18:03 | MM ---
Reason for Exam: Screening (asymptomatic). Last mammogram was performed 2 year(s) and 3 month(s) ago. Patient History: Menarche at age 12. First Full-Term at age 26. Postmenopausal. Patient has history of breast feeding. Estrogen for 1 year from age 52 until age 52. Risk Values: Sydnie 5 year model risk: 2.0%. NCI Lifetime model risk: 5.1%. Prior Study Comparison: 12/31/2015 Bilateral Screening Mammogram, [facility]. 04/17/2018 Bilateral Screening Mammogram, [facility]. 02/24/2021 Bilateral Screening Mammogram, [facility]. Tissue Density: The breast tissue is heterogeneously dense. This may lower the sensitivity of mammography. Findings: Analyzed By CAD. Pattern appears symmetrical and stable. No significant interval change is evident No suspicious groups of microcalcifications, spiculated or lobular masses, architectural distortion or other secondary signs of malignancy are mammographically apparent. Overall Assessment: Benign, BI-RAD 2 Management: Screening Mammogram of both breasts in 1 year. A negative mammogram report should not preclude additional follow up of suspicious palpable abnormalities. Patient should continue monthly self breast exam. A clinical breast exam by your physician is recommended on an annual basis and results should be correlated with mammographic findings. Electronically signed and approved by: Nico Ying D.O. Radiologis
== END | disposition home or self-care (01) ==
LOC: RADMAMWWP 16:13
PROVIDERS: ATTEND Internal Medicine
DX: Z12.31 Encounter for screening mammogram for malignant neoplasm of breast (principal); Z78.0 Asymptomatic menopausal state
CPT/HCPCS: 77063; 77067

== ENCOUNTER 2023-06-09 08:41 | Day surgery (SDC) | payer MEDICARE ==
[2023-06-09] MEDS: LIDOCAINE 1% (10MG/ML) FOR IV START INTRADERMA ONE (09:27)
[2023-06-09] MEDS: LACTATED RINGERS 1,000 ML IV SCH (09:28)
[2023-06-09 09:32] VITALS: TEMP 97.7
[2023-06-09 09:34] LABS: Glucose,Whole Blood 94 mg/dL (70-110)
[2023-06-09] MEDS ORDERED: PROPOFOL 10 MG/ML 20 ML VIAL IV ONE (09:49)
[2023-06-09] MEDS ORDERED: LIDOCAINE 1% INJ 10MG/ML (20 ML MDV) ONE (09:49)
--- NOTE | 2023-06-09 10:17 | P.PCN ---
Date of Procedure: 06/09/23 Procedure(s) Performed: BRIEF HISTORY: Patient is a 72-year-old [place] female scheduled for an elective colonoscopy as a part of evaluation of prior history of colon polyps. Last colonoscopy was 7 years ago. PROCEDURE PERFORMED: Colonoscopy biopsy and snare polypectomy. PREOPERATIVE DIAGNOSIS: History of colon polyps . IV sedation per Anesthesia. PROCEDURE: After informed consent was obtained, the patient, was brought into the endoscopy unit. IV sedation was administered by Anesthesia under continuous monitoring. Digital rectal examination was normal. Initially the Olympus CF-160 flexible video colonoscope was then inserted in the rectum, gradually advanced into the cecum without any difficulty. Careful examination was performed as the scope was gradually being withdrawn. Ileocecal valve and the appendiceal orifice were visualized and appeared normal. Prep was excellent. Mucosa of the cecum had a 4 mm polyp that was removed by cold biopsy., Mucosa of the ascending colon, appeared normal. In the transverse colon there was a 7 mm sessile polyp that was removed by cold snare polypectomy. Rest of the transverse colon, descending colon, sigmoid colon, and rectum appeared normal. Scattered sigmoidal diverticulosis. Retroflexion was performed in the rectum and no lesions were seen. The patient tolerated the procedure well. IMPRESSION: 4 mm cecal polyp status post cold biopsy 7 mm transverse colon polyp status post cold snare polypectomy Scattered sigmoid diverticulosis. RECOMMENDATIONS: Findings of this examination were discussed with the patient as well as a family. She was advised to follow with the biopsy results. If the biopsy results adenoma she can have a repeat colonoscopy in 5 years.
[2023-06-09 10:34] VITALS: PULSE 57; RESP 16
[2023-06-09 11:04] VITALS: BP 104/50
== END 2023-06-09 10:54 | disposition home or self-care (01) ==
LOC: ORWHC2ENDO 08:41
PROVIDERS: ATTEND Internal Medicine Gastroenterology
DX: Z12.11 Encounter for screening for malignant neoplasm of colon (principal); K63.5 Polyp of colon; K57.30 Diverticulosis of large intestine without perforation or abscess without bleeding; I10 Essential (primary) hypertension; J45.909 Unspecified asthma, uncomplicated; E07.9 Disorder of thyroid, unspecified; E05.00 Thyrotoxicosis with diffuse goiter without thyrotoxic crisis or storm; Z79.51 Long term (current) use of inhaled steroids; Z79.899 Other long term (current) drug therapy; Z79.82 Long term (current) use of aspirin; Z79.890 Hormone replacement therapy; Z88.2 Allergy status to sulfonamides; Z86.010 Personal history of colon polyps
CPT/HCPCS: 88305; 45380; 45385; J2001; J2704

== ENCOUNTER 2023-09-30 09:26 | Emergency (ER) | payer MEDICARE ==
--- NOTE | 2023-09-30 09:47 | ED ---
Abdominal Pain HPI - General Chief Complaint: Abdominal Pain Stated Complaint: diareaha and blood in stool Time Seen by Provider: 09/30/23 09:46 Source: patient, RN notes reviewed Mode of arrival: ambulatory Limitations: no limitations - History of Present Illness Initial Comments: 73-year-old female presented to ER with chief complaint of diarrhea and bright red blood per stool. Patient reports around 9 PM last night she started to experience abdominal cramping and multiple bouts of diarrhea. She states around 4 AM she noticed bright red blood in the toilet. Patient is not currently on any blood thinners. She does report a distant history of hemorrhoids. She reports most of her pain is on her left lower quadrant. Patient recently underwent colonoscopy with Dr. Hoff and had 2 polyps removed. She denies any fevers or chills but does report she had dry heaves earlier this morning. Denies any urinary complaints or peripheral edema. Patient does report she had a knee manipulation on and has been attending PT. Patient states that she takes an oxycodone and diclofenac prior to PT for pain. - Related Data Home Medications Medication Instructions Recorded Confirmed Black Seed Oil 1,000 mg PO DAILY 07/30/18 06/09/23 L.acidoph,Paracasei, B.lactis 1 cap PO DAILY 07/30/18 06/09/23 [Probiotic] Metoprolol Succinate (ER) [Toprol 50 mg PO BID 07/30/18 06/09/23 XL] amLODIPine BESYLATE/BENAZEPRIL 1 cap PO DAILY 07/30/18 06/09/23 [amLODIPine BESYLATE/BENAZEPRIL 10-20 MG] hydroCHLOROthiazide [Hydrodiuril] 25 mg PO DAILY 07/30/18 06/09/23 Budesonide/Formoterol Fumarate 2 puff INHALATION RT-BID 05/21/21 06/09/23 [Symbicort 160-4.5 Mcg Inhaler] Levothyroxine Sodium [Synthroid] 75 mcg PO DAILY 05/21/21 06/09/23 Albuterol Inhaler [Ventolin Hfa 2 puff INHALATION RT-Q6H PRN 02/23/23 06/09/23 Inhaler] Aspirin EC [Ecotrin Low Dose] 81 mg PO Q48H 02/23/23 06/09/23 Cetirizine HCl [Zyrtec] 20 mg PO DAILY 10/26/23 02/09/24 Cholecalciferol [Vitamin D3 (125 125 mcg PO DAILY 02/23/23 06/09/23 Mcg = 5000 Iu)] Multivit-Min/FA/Lycopen/Lutein 1 tab PO DAILY 02/23/23 06/09/23 [Centrum Silver Tablet] Previous Rx's Medication Instructions Recorded Amoxic-Pot Clav 875-125Mg 1 tab PO TID 5 Days #15 tab 09/30/23 [Augmentin 875-125] Dicyclomine [Bentyl] 10 mg PO TID 5 Days #15 capsule 09/30/23 Allergies Allergy/AdvReac Type Severity Reaction Status Date / Time Sulfa (Sulfonamide Allergy Swelling Verified 09/30/23 09:32 Antibiotics) of face and lips, red skin Review of Systems ROS Statement: Those systems with pertinent positive or pertinent negative responses have been documented in the HPI. ROS Other: All systems not noted in ROS Statement are negative. 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 , knee replacement 07/17/23 Past Anesthesia/Blood Transfusion Reactions: Previous Problems w/ Anesthesia, Motion Sickness Additional Past Anesthesia/Blood Transfusion Reaction / Comment(s): had bronch 2019 & next day developed fever & N/V, had ER visits related to & then was admitted, on A/B, thought to be pneumonitis, has never had problems w/surgery or anesthesia before, was not felt that was related to anesthesia Past Psychological History: No Psychological Hx Reported Smoking Status: Never smoker Past Alcohol Use History: None Reported Past Drug Use History: None Reported - Past Family History Brother(s) Family Medical History: Deep Vein Thrombosis (DVT) General Exam Limitations: no limitations General appearance: alert, in no apparent distress Respiratory exam: Present: normal lung sounds bilaterally. Absent: respiratory distress, wheezes, rales, rhonchi, stridor Cardiovascular Exam: Present: regular rate, normal rhythm, normal heart sounds. Absent: systolic murmur, diastolic murmur, rubs, gallop, clicks GI/Abdominal exam: Present: soft, tenderness (Left lower quadrant), normal bowel sounds Rectal exam: Present: normal rectal tone, other (Skin tag ) Extremities exam: Present: normal inspection, full ROM, normal capillary refill. Absent: tenderness, pedal edema, joint swelling, calf tenderness Skin exam: Present: warm, dry, intact, normal color. Absent: rash Course Vital Signs 09/30/23 09/30/23 09:29 11:39 Temperature 98.4 F Pulse Rate 85 63 Respiratory 20 19 Rate Blood Pressure 164/95 139/79 O2 Sat by Pulse 97 97 Oximetry Medical Decision Making - Medical Decision Making Was pt. sent in by a medical professional or institution (GOVIND Hernandez, INSTRUCTOR [employer], urgent care, hospital, or alf...) When possible be specific @ -No Did you speak to anyone other than the patient for history (EMS, parent, family, police, friend...)? What history was obtained from this source @ - aiding in HPI Did you review nursing and triage notes (agree or disagree)? Why? @ -I reviewed and agree with nursing and triage notes Were old charts reviewed (outside hosp., previous admission, EMS record, old EKG, old radiological studies, urgent care reports/EKG's, alf records)? Report findings @ -No old charts were reviewed Differential Diagnosis (chest pain, altered mental status, abdominal pain women, abdominal pain men, vaginal bleeding, weakness, fever, dyspnea, syncope, headache, dizziness, GI bleed, back pain, seizure, CVA, palpatations, mental health, musculoskeletal)? @ -Differential Abdominal Pain Women: Appendicitis, Cholecystitis, diverticulosis, ischemic bowel, pancreatitis, hepatitis, UTI, gastroenteritis, AAA, incarcerated hernia, bowel obstruction, constipation, inflammatory bowel, hepatitis, peptic ulcer disease, splenic infarction, perforated viscus, vulvitis, ovarian torsion, PID, kidney stone, placenta abruption, this is not meant to be an all-inclusive list EKG interpreted by me (3pts min.). @ -None X-rays interpreted by me (1pt min.). @ -None done CT interpreted by me (1pt min.). @ -CT abdomen pelvis significant for nonspecific inflammation of left colon involving splenic flexure and descending colon. Findings consistent with acute diverticulitis versus infectious colitis. U/S interpreted by me (1pt. min.). @ -None done What testing was considered but not performed or refused? (CT, X-rays, U/S, labs)? Why? @ -None What meds were considered but not given or refused? Why? @ -None Did you discuss the management of the patient with other professionals (professionals i.e. DrMike, PA, [employer], lab, RT, psych nurse, social service agency director, veneer grader, teacher, optics technical officer, case aide)? Give summary @ -No Was smoking cessation discussed for >3mins.? @ -No Was critical care preformed (if so, how long)? @ -No Were there social determinants of health that impacted care today? How? (Homelessness, low income, unemployed, alcoholism, drug addiction, transportation, low edu. Level, literacy, decrease access to med. care, longterm, rehab)? @ -No Was there de-escalation of care discussed even if they declined (Discuss DNR or withdrawal of care, Hospice)? DNR status @ -No What co-morbidities impacted this encounter? (DM, HTN, Smoking, COPD, CAD, Cancer, CVA, ARF, Chemo, Hep., AIDS, mental health diagnosis, sleep apnea, morbid obesity)? @ -None Was patient admitted / discharged? Hospital course, mention meds given and route, prescriptions, significant lab abnormalities, going to OR and other pertinent info. @ -Discharge. 73-year-old female presented to the ER with a chief complaint of abdominal pain. History and physical exam completed. Vitals upon arrival significant for a temperature 98.4, pulse 85, respiratory rate 20, blood pressure 164/95, oxygen saturation 97% on room air. Physical exam significant for normal bowel sounds with exquisitely tender left lower quadrant. Rectal exam performed due to to patient reporting blood in her stool. Chetan STEWART chaperoned exam. Exam negative from gross blood or hemorrhoids. Laboratory studies obtained unremarkable. Hemoglobin stable at 14.7. Stool occult positive. Urine showing moderate blood which is believed to be contaminated from rectal bleeding. CT abdomen pelvis considered due to physical exam findings and stool occult blood positive. CT abdomen pelvis significant for nonspecific inflammation of left colon involving splenic flexure and descending colon. Findings could represent diverticulitis versus infectious colitis. Patient received IV fluids in the ER. On reevaluation, patient resting comfortably in exam room in no signs of acute distress and eager for discharge. Results discussed with patient, all questions answered. I advised on admission due to stool occult positive, patient refused. Patient deemed safe for discharge as hemoglobin stable and no gross blood on rectal exam. I had a lengthy discussion with patient setting strict return parameters, she expressed verbal understanding. Patient will be started on Bentyl and Augmentin. I advised close follow-up with primary care physician and GI. Patient verbally expressed understanding and agreement with care plan. Case discussed with ED attending, Dr. Quezada. Undiagnosed new problem with uncertain prognosis? @ -No Drug Therapy requiring intensive monitoring for toxicity (Heparin, Nitro, Insulin, Cardizem)? @ -No Were any procedures done? @ -No Diagnosis/symptom? @ -Diverticulitis Acute, or Chronic, or Acute on Chronic? @ -Acute Uncomplicated (without systemic symptoms) or Complicated (systemic symptoms)? @ -Uncomplicated Side effects of treatment? @ -No Exacerbation, Progression, or Severe Exacerbation? @ -No Poses a threat to life or bodily function? How? (Chest pain, USA, CA, pneumonia, PE, COPD, DKA, ARF, appy, cholecystitis, CVA, Diverticulitis, Homicidal, Suicidal, threat to staff... and all critical care pts) @ -Possibly, diverticulitis can lead to bowel perforation and sepsis. - Lab Data Result diagrams: 09/30/23 10:04 09/30/23 10:04 Lab Results 09/30/23 09/30/23 09/30/23 Range/Units 10:04 10:04 10:04 WBC 10.6 (3.8-10.6) k/uL RBC 4.66 (3.80-5.40) m/uL Hgb 14.7 (11.4-16.0) gm/dL Hct 42.7 (34.0-46.0) % MCV 91.7 (80.0-100.0) fL MCH 31.5 (25.0-35.0) pg MCHC 34.3 (31.0-37.0) g/dL RDW 12.4 (11.5-15.5) % Plt Count 269 (150-450) k/uL MPV 6.6 Neutrophils % 73 % Lymphocytes % 18 % Monocytes % 6 % Eosinophils % 1 % Basophils % 1 % Neutrophils # 7.7 (1.3-7.7) k/uL Lymphocytes # 2.0 (1.0-4.8) k/uL Monocytes # 0.6 (0-1.0) k/uL Eosinophils # 0.1 (0-0.7) k/uL Basophils # 0.1 (0-0.2) k/uL Sodium 136 L (137-145) mmol/L Potassium 3.7 (3.5-5.1) mmol/L Chloride 104 (98-107) mmol/L Carbon Dioxide 27 (22-30) mmol/L Anion Gap 5 mmol/L BUN 13 (7-17) mg/dL Creatinine 0.57 (0.52-1.04) mg/dL Est GFR (CKD-EPI)AfAm >90 (>60 ml/min/1.73 sqM) Est GFR (CKD-EPI)NonAf >90 (>60 ml/min/1.73 sqM) Glucose 95 (74-99) mg/dL Plasma Lactic Acid Tulio (0.7-2.0) mmol/L Calcium 10.0 (8.4-10.2) mg/dL Total Bilirubin 0.9 (0.2-1.3) mg/dL AST 29 (14-36) U/L ALT 25 (4-34) U/L Alkaline Phosphatase 74 (38-126) U/L Total Protein 7.7 (6.3-8.2) g/dL Albumin 4.7 (3.5-5.0) g/dL Amylase 52 (30-110) U/L Lipase 75 (23-300) U/L Urine Color Colorless Urine Appearance Clear (Clear) Urine pH 7.0 (5.0-8.0) Ur Specific [place] 1.007 (1.001-1.035) Urine Protein Negative (Negative) Urine Glucose (UA) Negative (Negative) Urine Ketones Negative (Negative) Urine Blood Moderate H (Negative) Urine Nitrite Negative (Negative) Urine Bilirubin Negative (Negative) Urine Urobilinogen <2.0 (<2.0) mg/dL Ur Leukocyte Esterase Negative (Negative) Urine WBC 1 (0-5) /hpf Ur Squamous Epith Cells 2 (0-4) /hpf Urine Mucus Rare H (None) /hpf Stool Occult Blood (Negative) 09/30/23 09/30/23 Range/Units 10:04 10:17 WBC (3.8-10.6) k/uL RBC (3.80-5.40) m/uL Hgb (11.4-16.0) gm/dL Hct (34.0-46.0) % MCV (80.0-100.0) fL MCH (25.0-35.0) pg MCHC (31.0-37.0) g/dL RDW (11.5-15.5) % Plt Count (150-450) k/uL MPV Neutrophils % % Lymphocytes % % Monocytes % % Eosinophils % % Basophils % % Neutrophils # (1.3-7.7) k/uL Lymphocytes # (1.0-4.8) k/uL Monocytes # (0-1.0) k/uL Eosinophils # (0-0.7) k/uL Basophils # (0-0.2) k/uL Sodium (137-145) mmol/L Potassium (3.5-5.1) mmol/L Chloride (98-107) mmol/L Carbon Dioxide (22-30) mmol/L Anion Gap mmol/L BUN (7-17) mg/dL Creatinine (0.52-1.04) mg/dL Est GFR (CKD-EPI)AfAm (>60 ml/min/1.73 sqM) Est GFR (CKD-EPI)NonAf (>60 ml/min/1.73 sqM) Glucose (74-99) mg/dL Plasma Lactic Acid Tulio 1.4 (0.7-2.0) mmol/L Calcium (8.4-10.2) mg/dL Total Bilirubin (0.2-1.3) mg/dL AST (14-36) U/L ALT (4-34) U/L Alkaline Phosphatase (38-126) U/L Total Protein (6.3-8.2) g/dL Albumin (3.5-5.0) g/dL Amylase (30-110) U/L Lipase (23-300) U/L Urine Color Urine Appearance (Clear) Urine pH (5.0-8.0) Ur Specific [place] (1.001-1.035) Urine Protein (Negative) Urine Glucose (UA) (Negative) Urine Ketones (Negative) Urine Blood (Negative) Urine Nitrite (Negative) Urine Bilirubin (Negative) Urine Urobilinogen (<2.0) mg/dL Ur Leukocyte Esterase (Negative) Urine WBC (0-5) /hpf Ur Squamous Epith Cells (0-4) /hpf Urine Mucus (None) /hpf Stool Occult Blood Positive H (Negative) - Radiology Data Radiology results: report reviewed, image reviewed Disposition Clinical Impression: Diverticulitis Disposition: HOME SELF-CARE Condition: Stable Instructions (If sedation given, give patient instructions): Diverticulitis (DC), Diverticulitis Diet (ED) Additional Instructions: Complete full course of antibiotics. Take Bentyl for abdominal cramping. Return to the ER for any new or worsening symptoms. Prescriptions: Amoxic-Pot Clav 875-125Mg [Augmentin 875-125] 1 tab PO TID 5 Days #15 tab Dicyclomine [Bentyl] 10 mg PO TID 5 Days #15 capsule Is patient prescribed a controlled substance at d/c from ED?: No Referrals: Peyman Padilla MD [Primary Care Provider] - 1-2 days Kimberley Hoff MD [STAFF PHYSICIAN] - 1-2 days Time of Disposition: 11:41
[2023-09-30 10:07] VITALS: TEMP 98.4
[2023-09-30] MEDS: SODIUM CHLORIDE 0.9% 500 ML 500 ML IV STA (10:10)
[2023-09-30 10:18] LABS: Basophils # (A) 0.1 k/uL (0-0.2); Basophils % (A) 1 %; Eosinophils # (A) 0.1 k/uL (0-0.7); Eosinophils % (A) 1 %; HCT 42.7 % (34.0-46.0); HGB 14.7 gm/dL (11.4-16.0); Lymphocytes % (A) 18 %; MCH 31.5 pg (25.0-35.0); MCHC 34.3 g/dL (31.0-37.0); MCV 91.7 fL (80.0-100.0); Mean Platelet Volume 6.6; Monocytes # (A) 0.6 k/uL (0-1.0); Monocytes % (A) 6 %; Neutrophils # (A) 7.7 k/uL (1.3-7.7); Neutrophils % (A) 73 %; Platelet Count 269 k/uL (150-450); RBC 4.66 m/uL (3.80-5.40); RDW 12.4 % (11.5-15.5); WBC 10.6 k/uL (3.8-10.6)
--- NOTE | 2023-09-30 10:26 | XR ---
KUB. HISTORY: Abdominal pain. COMPARISON: None. TECHNIQUE: Single upright views of the abdomen were obtained. FINDINGS: The lung bases are clear. There is no free intraperitoneal air beneath the diaphragm. The bowel gas pattern is nonspecific and there is no evidence of obstruction. No suspicious abdominal or pelvic calcifications are seen. There is severe degenerative changes of the right hip and mild degenerative changes of the left hip. IMPRESSION: Nonspecific abdomen without evidence of free air or obstruction. Hip arthrosis, right greater than le ft.
[2023-09-30 10:30] LABS: ALT 25 U/L (4-34); AST 29 U/L (14-36); African American GFR (CKD) >90 (>60 ml/min/1.73 sqM); Albumin 4.7 g/dL (3.5-5.0); Alkaline Phosphatase 74 U/L (38-126); Amylase 52 U/L (30-110); Anion Gap 5 mmol/L; Blood Urea Nitrogen 13 mg/dL (7-17); Carbon Dioxide 27 mmol/L (22-30); Chloride 104 mmol/L (98-107); Glucose 95 mg/dL (74-99); Lipase 75 U/L (23-300); Non-African American GFR(CKD) >90 (>60 ml/min/1.73 sqM); Potassium 3.7 mmol/L (3.5-5.1); Sodium 136 mmol/L (137-145); Total Bilirubin 0.9 mg/dL (0.2-1.3); Total Protein 7.7 g/dL (6.3-8.2)
[2023-09-30 10:32] LABS: Appearance,Urine Clear (Clear); Bilirubin,Urine Negative (Negative); Blood,Urine Moderate (Negative); Color,Urine Colorless; Glucose,Urine (UA) Negative (Negative); Ketones,Urine Negative (Negative); Leukocyte Esterase,Urine Negative (Negative); Mucus,Urine Rare /hpf; Nitrite,Urine Negative (Negative); Protein,Urine Negative (Negative); Specific Gravity,Urine 1.007 (1.001-1.035); Squamous Epithelial Cell,Urine 2 /hpf (0-4); Urobilinogen,Urine <2.0 mg/dL (<2.0); WBC,Urine 1 /hpf (0-5)
--- NOTE | 2023-09-30 11:11 | CT ---
EXAMINATION TYPE: CT abdomen pelvis w con DATE OF EXAM: 09/30/2023 COMPARISON: None HISTORY: LLQ abd pain, blood in stool CT DLP: 870.1 mGycm Automated exposure control for dose reduction was used. TECHNIQUE: Helical acquisition of images was performed from the lung bases through the pelvis. CONTRAST: Performed without Oral Contrast and with IV Contrast, patient injected with 100ml mL of Isovue 300. Findings: There is mild fine reticular density lower lobes. There is a stable 8 mm nodule in the right middle l obe. It was seen on the prior CTA of the chest dated 08/03/2018. The gallbladder is normal without distention, wall thickening, pericholecystic fluid or gallstones. T here is no biliary ductal dilatation. There is no focal mass or organomegaly involving the liver, pancreas, spleen or adrenal glands. There are a few scattered small hepatic cysts There is no solid renal mass or hydronephrosis and there is homogeneous contrast enhancement of the r enal parenchyma. The right kidney is malrotated. The caliber the abdominal aorta is normal is no retroperitoneal adenopathy or hemorrhage. There is moderate edema/thickening of the wall of the descending colon and splenic flexure with mild pericolic fat infiltration consistent with acute colitis possibly diverticulitis. There is diverticul osis of the colon. There is no free intraperitoneal air. There is a small amount of fluid within the cul-de-sac of the p satish. No pelvic mass, free fluid, abscess or adenopathy. The osseous structures and soft tissues are intact. IMPRESSION: Nonspecific inflammation of the left colon involving the splenic flexure and descending colon as desc ribed above. Findings could represent acute diverticulitis or infectious colitis. No bowel obstructio n, abscess or free intraperitoneal air.
[2023-09-30 11:45] VITALS: BP 139/79; PULSE 63; RESP 19
== END 2023-09-30 11:52 | disposition home or self-care (01) ==
LOC: EC 09:26
DX: K57.92 Diverticulitis of intestine, part unspecified, without perforation or abscess without bleeding (principal); Z88.2 Allergy status to sulfonamides
CPT/HCPCS: 36415; 80053; 82150; 83605; 83690; 85025; 82272; 81001; 74018; 74177; 99284; Q9967

== ENCOUNTER → 2024-08-30 | Outpatient (CLI) | payer MEDICARE ==
--- NOTE | 2024-08-30 10:50 | MM ---
Reason for Exam: Screening (asymptomatic). Last mammogram was performed 1 year(s) and 4 month(s) ago. Patient History: Menarche at age 12. First Full-Term at age 26. Postmenopausal. Patient has history of breast feeding. Estrogen for 1 year from age 52 until age 52. Risk Values: Sydnie 5 year model risk: 2.0%. NCI Lifetime model risk: 4.5%. Prior Study Comparison: 04/17/2018 Bilateral Screening Mammogram, [facility]. 02/24/2021 Bilateral Screening Mammogram, [facility]. 05/03/2023 Bilateral MG 3D screening mammo w/cad, [facility]. Tissue Density: The breasts are heterogeneously dense, which may obscure small masses. Findings: Analyzed By CAD. Multiple predominantly subcentimeter lymph nodes bilaterally are redemonstrated. There is 6 mm round circumscribed mass in the right breast that is stable or smaller versus prior mammograms. There is no suspicious new group of microcalcifications or new suspicious mass in either breast. Overall Assessment: Benign, BI-RAD 2 Management: Screening Mammogram of both breasts in 1 year. . Patient should continue monthly self-breast exams. A clinical breast exam by your physician is recommended on an annual basis. This exam should not preclude additional follow-up of suspicious palpable abnormalities. Note on Sydnie scores and lifetime risk: 1. A Sydnie score greater than 3% is considered moderate risk. If this is the case, consider specialist referral to assess eligibility for a risk reducing agent. 2. If overall lifetime risk for the development of breast cancer is 20% or higher, the patient may qualify for future screening with alternating mammogram and breast MRI. [facility], , 08/30/2024 10:46 AM. Electronically signed and approved by: Krishna Rai M.D.
== END | disposition home or self-care (01) ==
LOC: RADMAMWWP 09:27
PROVIDERS: ATTEND Internal Medicine
DX: Z12.31 Encounter for screening mammogram for malignant neoplasm of breast (principal); R92.333 Mammographic heterogeneous density, bilateral breasts; Z78.0 Asymptomatic menopausal state
CPT/HCPCS: 77063; 77067

== ENCOUNTER → 2024-10-07 | Outpatient (CLI) | payer MEDICARE ==
[~2024-10-07] MED LIST changes: -LACTATED RINGERS 1,000 ML IV SCH; -LIDOCAINE 1% (10MG/ML) FOR IV START INTRADERMA PRN; -MOXIFLOXACIN HCL 0.5% DROPS 3 ML BTL OP PRN; +REGADENOSON 0.4 MG/5 ML SYRINGE IV PRN; -TETRACAINE 0.5% OPHTH (PF) DROPS 4 ML BTL OP PRN; -TIMOLOL 0.5% OPHTH DROPS 5 ML BTL OP PRN
--- NOTE | 2024-10-07 08:28 | US ---
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 Indirect Doppler criteria was utilized. FINDINGS: EXAM MEASUREMENTS: RIGHT: Peak Systolic Velocity (PSV) cm/sec ----- Right CCA: 44.6 ----- Right ICA: 86.8 ----- Right ECA: 58.1 ICA/CCA ratio: 1.9 RIGHT: End Diastole cm/sec ----- Right CCA: 11.8 ----- Right ICA: 26.0 ----- Right ECA: 9.7 LEFT: Peak Systolic Velocity (PSV) cm/sec ----- Left CCA: 62.5 ----- Left ICA: 87.5 ----- Left ECA: 67.4 ICA/CCA ratio: 1.4 LEFT: End Diastole cm/sec ----- Left CCA: 18.8 ----- Left ICA: 30.3 ----- Left ECA: 10.7 VERTEBRALS (direction of flow): Right Vertebral: Antegrade Left Vertebral: Antegrade, difficult to visualize Rhythm: Normal EXPENSE CLERK NOTES: Plaque seen in left bulb, right ICA slightly tortuous. Color Doppler imaging shows patency with blood flow throughout the carotid artery. Spectral waveforms are within normal limits. IMPRESSION: 1. Atheromatous plaque left carotid bulb without significant flow-limiting stenosis. Tortuosity is no rodrigo within the right internal carotid artery. Criteria for Assigning % of Stenosis / Diameter reduction (Estimation based on the indirect measurements of the internal carotid artery velocities (ICA PSV). 1. Normal (no stenosis)=ICA PSV < 180 cm/s: ratio < 2.0: ICA EDV<40 cm/s. 2. Less than 50% stenosis=ICA PSV < 180 cm/s: ratio < 2.0: ICA EDV<40 cm/s. 3. 50 to 69% stenosis=ICA PSV of 180 to 230 cm/s: ration 2.0 ? 4.0: ICA EDV 40-100 cm/s. PSV 125-180 cm/sec and ICA/CCA PSV Ratio ? 2.0 is also consistent with 50-69% stenosis 4. Greater than 70% stenosis to near occlusion= ICA PSV > 230 cm/s: ratio > 4.0: ICA EDV > 100 cm/s. 5. Near occlusion= ICA PSV velocities may be low or undetectable: variable ratio and ICA EDV. 6. Total occlusion=unable to detect flow. [facility], , 10/07/2024 8:26 AM
--- NOTE | 2024-10-07 12:01 | CA ---
Lexiscan Nuclear Stress Test Report Name: Rama Frias Exam Date: 10/07/2024 09:41 Exam Location: [facility] Stress Ht (in): 64 Wt (lb): 170 BSA: 1.83 Ordering Phys: Peyman Padilla MD Referring Phys: Peyman Padilla MD Technologist: Byron Magana Age: 74 Gender: F : 1950 Procedure CPT: Indications: I25.10 ICD-10 Codes: Patient History: HTN, HYPERCHOLESTEROLEMIA, FAMILY HX OF HEART DISEASE, ASTHMA Medications: Meds past 24 hrs: Pretest Chest Pain: STRESS TEST Lexiscan Protocol Exercise Duration (min:sec): 02:[address] Depressions (mm): Angina Score: Mckeon Score: Resting HR (bpm): 54 Peak HR (bpm): 72 Resting BP (mmHg): 144 / 90 Peak BP (mmHg): 146 / 79 MPHR: 146 Target HR: 124 % MPHR: 49 METS: 1.0 Total Dose: Peak Dose: Atropine: Double Product: 41080 BP Response: Stress Termination: INFUSION COMPLETE Stress Symptoms: NO SYMPTOMS Stress Summary: ECG ANALYSIS Resting ECG: Sinus rhythm. Normal conduction. Atrial premature contraction. Nonspecific ST-T abnormality. Stress ECG: No ECG changes from baseline with Lexiscan infusion. CONCLUSIONS No ECG evidence of ischemia with Lexiscan infusion. Nuclear test results to follow. Dr. Kristi Mir MD (Electronically Signed) Final Date: 07 October 2024 12:00
--- NOTE | 2024-10-07 22:11 | NM ---
EXAMINATION TYPE: NM stress cardiolite complete DATE OF EXAM: 10/07/2024 COMPARISON: NONE CLINICAL INDICATION: Female, 74 years old with history of I25.10, TECHNIQUE: After the intravenous administration of 10.2 mCi Tc 99m Sestamibi - Cardiolite resting SP ECT images acquired 62 minutes post injection. At peak stress 25.8 mCi Tc 99m Sestamibi - Stress images obtained 43 minutes post injection The patient was stressed with 0.4mg Lexiscan. FINDINGS: No fixed defects are evident. No reversible stress defects on Spect images. Wall motion is normal. Ejection fraction is calculated to be 77 %. IMPRESSION: 1. No stress-induced ischemic changes. [facility], , 10/07/2024 10:08 PM
== END | disposition home or self-care (01) ==
LOC: RADUSWWP 07:32
PROVIDERS: ATTEND Internal Medicine
DX: I25.10 Atherosclerotic heart disease of native coronary artery without angina pectoris (principal); I65.23 Occlusion and stenosis of bilateral carotid arteries; M81.0 Age-related osteoporosis without current pathological fracture; E78.00 Pure hypercholesterolemia, unspecified; I10 Essential (primary) hypertension; Z82.49 Family history of ischemic heart disease and other diseases of the circulatory system
CPT/HCPCS: 93017; 93880; 78452; A9500; J2785

== ENCOUNTER → 2024-10-31 | Outpatient (CLI) | payer MEDICARE ==
--- NOTE | 2024-10-31 11:25 | CA ---
Transthoracic Echo Report Name: Rama Frias Age: 74 Gender: F : 1950 Exam Date: 10/31/2024 08:27 Exam Location: [facility] Ht (in): 64 Wt (lb): 170 Ordering Physician: Peyman Padilla MD Attending/Referring Phys: Peyman Padilla MD Case Briefer Lew Muñoz RDCS Procedure CPT: Indications: I25.10 arteriosclerosis Cardiac Hx: Technical Quality: Good Contrast 1: Total Dose (mL): Contrast 2: Total Dose (mL): MEASUREMENTS (Male / Female) Normal Values 2D ECHO LV Diastolic Diameter PLAX 4.9 cm 4.2 - 5.9 / 3.9 - 5.3 cm LV Systolic Diameter PLAX 3.5 cm IVS Diastolic Thickness 0.8 cm 0.6 - 1.0 / 0.6 - 0.9 cm LVPW Diastolic Thickness 0.9 cm 0.6 - 1.0 / 0.6 - 0.9 cm LV Relative Wall Thickness 0.4 RV Internal Dim ED PLAX 2.5 cm LVOT Diameter 1.9 cm LV Diastolic Volume MOD BP 104.7 cm??? 67 - 155 / 56 - 104 cm??? LV Systolic Volume MOD BP 45.6 cm??? 22 - 58 / 19 - 49 cm??? LV Ejection Fraction MOD BP 56.4 % >= 55 % LV Cardiac Index MOD BP 1844.2 cm???/min???m??? LV Diastolic Volume MOD 4C 113.7 cm??? LV Systolic Volume MOD 4C 46.7 cm??? LV Ejection Fraction MOD 4C 58.9 % LV Cardiac Index MOD 4C 2093.3 cm???/min???m??? LV Diastolic Length 4C 8.6 cm LV Systolic Length 4C 7.2 cm LV Diastolic Volume MOD 2C 91.6 cm??? LV Systolic Volume MOD 2C 42.7 cm??? LV Ejection Fraction MOD 2C 53.4 % LV Cardiac Index MOD 2C 1527.2 cm???/min???m??? LV Diastolic Length 2C 8.1 cm LV Systolic Length 2C 6.9 cm DOPPLER AI Peak Velocity 297.6 cm/s AI Peak Gradient 35.4 mmHg AI Pressure Half Time 524.1 ms MV Area PHT 2.4 cm??? Mitral E Point Velocity 60.4 cm/s Mitral A Point Velocity 63.5 cm/s Mitral E to A Ratio 1.0 MV Deceleration Time 316.4 ms TR Peak Velocity 270.7 cm/s TR Peak Gradient 29.3 mmHg Right Atrial Pressure 5.0 mmHg Pulmonary Artery Systolic Pressu 34.3 mmHg Right Ventricular Systolic Press 34.3 mmHg FINDINGS Left Ventricle Left ventricular ejection fraction is estimated at 55%. Normal left ventricular systolic function with no obvious regional wall motion abnormalities. Left ventricular cavity size normal. Left ventricular wall thickness normal. Right Ventricle Normal right ventricular size and function. Right ventricular systolic pressure within normal limits. Right Atrium Normal right atrial size. Left Atrium Mildly increased left atrial area. Mitral Valve Mitral annular calcification. No mitral stenosis. Mild mitral regurgitation. Aortic Valve Trileaflet aortic valve. No aortic stenosis. Mild aortic regurgitation. Tricuspid Valve Structurally normal tricuspid valve. No tricuspid stenosis. [id number] tricuspid regurgitation. Pulmonic Valve Structurally normal pulmonic valve. No pulmonic stenosis. Trace pulmonic regurgitation. Pericardium No pericardial effusion. Aorta Aortic annulus normal. CONCLUSIONS Normal left ventricular size and systolic function Mild mitral aortic and [id number] tricuspid regurgitation Previewed by: Dr. Valentín Hoff MD (Electronically Signed) Final Date: 31 October 2024 11:24
== END | disposition home or self-care (01) ==
LOC: RADECHMAIN 07:40
PROVIDERS: ATTEND Internal Medicine
DX: I08.3 Combined rheumatic disorders of mitral, aortic and tricuspid valves (principal); I25.10 Atherosclerotic heart disease of native coronary artery without angina pectoris; I70.90 Unspecified atherosclerosis
CPT/HCPCS: 93306